=== PATIENT | female | born 1975 ===

== ENCOUNTER 2016-11-16 23:28 | Inpatient (IN) | payer OTHER ==
[~2016-11-16] VITALS: Ht 170.2 cm; Wt 77.5 kg
[2016-11-16 23:35] VITALS: BP 134/84; PULSE 112; RESP 20; TEMP 98.4; O2SAT 98
[2016-11-17] VITALS (8 sets, daily range): BP systolic 98–135; BP diastolic 55–94; PULSE 58–96; RESP 16–20; TEMP 96.4–97.8; O2SAT 94–98
[2016-11-17 00:11] LABS: AUTOMATED NEUTROPHIL # 4.7 TH/MM3 (1.8-7.7); BASOPHIL # 0.1 TH/MM3 (0-0.2); BASOPHIL % 0.7 % (0.0-2.0); EOSINOPHIL # 0.1 TH/MM3 (0-0.4); EOSINOPHIL % 1.6 % (0.0-4.0); HEMATOCRIT 39.4 % (35.0-46.0); HEMO FLAGS DIFF FINAL; LYMPH % 35.5 % (9.0-44.0); LYMPHOCYTE # 2.9 TH/MM3 (1.0-4.8); MEAN CELL VOLUME 89.3 FL (80.0-100.0); MEAN CORPUSCULAR HEMOGLOBIN 30.1 PG (27.0-34.0); MEAN CORPUSCULAR HGB CONC 33.8 % (32.0-36.0); MONO % 5.6 % (0.0-8.0); NEUT % 56.6 % (16.0-70.0); PLATELET COUNT 242 TH/MM3 (150-450); RED BLOOD COUNT 4.41 MIL/MM3 (4.00-5.30); RED CELL DISTRIBUTION WIDTH 13.1 % (11.6-17.2); WHITE BLOOD COUNT 8.3 TH/MM3 (4.0-11.0)
--- NOTE | 2016-11-17 00:21 | RADRPT ---
EXAM DATE/TIME: 11/17/2016 00:11 [facility] COMPARISON: No previous studies available for comparison. INDICATIONS : Weakness and left hand numbness. MEDICAL HISTORY : None. SURGICAL HISTORY : None. ENCOUNTER: Initial ACUITY: 1 day PAIN SCORE: 0/10 LOCATION: Bilateral chest FINDINGS: The lungs are clear without infiltrate, nodule, or mass. There is no appreciable pleural effusion fo r technique. Heart and mediastinum are unremarkable. CONCLUSION: No acute cardiopulmonary disease. Jared Arias MD on November 17, 2016 at 0:19 Board Certified Radiologist. This report was verified electronically.
[2016-11-17 00:26] LABS: APTT (PATIENT) 25.2 SEC (24.3-30.1); INTERNATIONAL NORMALIZED RATIO 0.9 RATIO; PROTHROMBIN TIME - PATIENT 10.2 SEC (9.8-11.6)
[2016-11-17 00:46] LABS: BLOOD, URINE NEG (NEG); COMMENT (UR) CULT NOT INDICATED; CULTURE IF INDICATED CULT NOT INDICATED; GLUCOSE,URINE NEG (NEG); KETONE, URINE NEG (NEG); NITRITE,URINE NEG (NEG); SQUAMOUS EPITHELIAL CELL URINE 2 /hpf (0-5); URINE COLOR COLORLESS (YELLW/STRAW)
[2016-11-17 00:49] LABS: ALT (GPT) 28 U/L (10-53); ANION GAP 7 MEQ/L (5-15); AST (GOT) 23 U/L (15-37); BICARBONATE 27.3 MEQ/L (21.0-32.0); BLOOD UREA NITROGEN 13 MG/DL (7-18); CHLORIDE 105 MEQ/L (98-107); GLOMERULAR FILTRATION RATE 70 ML/MIN (>89); SODIUM (NA) 139 MEQ/L (136-145)
[2016-11-17 00:56] LABS: ALKALINE PHOSPHATASE 52 U/L (45-117); TOTAL BILIRUBIN ADULT 0.4 MG/DL (0.2-1.0)
--- NOTE | 2016-11-17 00:57 | RADRPT ---
EXAM DATE/TIME: 11/17/2016 00:45 [facility] COMPARISON: No previous studies available for comparison. INDICATIONS : Left arm and hand weakness. RADIATION DOSE: 32.93 CTDIvol (mGy) MEDICAL HISTORY : None SURGICAL HISTORY : None. ENCOUNTER: Initial ACUITY: 1 day PAIN SCALE: 0/10 LOCATION: cranial TECHNIQUE: Multiple contiguous axial images were obtained of the head. Using automated exposure control and adj ustment of the mA and/or kV according to patient size, radiation dose was kept as low as reasonably a chievable to obtain optimal diagnostic quality images. FINDINGS: There is no evidence for intracranial hemorrhage, mass effect, mass lesions, edema, or extra-axial fl uid collections. The visualized bony structures appear intact. The ventricles are normal size for t he patient's age. There are no signs of acute infarction for technique. CONCLUSION: Unremarkable study. Jared Arias MD on November 17, 2016 at 0:54 Board Certified Radiologist. This report was verified electronically.
--- NOTE | 2016-11-17 01:00 | RADRPT ---
EXAM DATE/TIME: 11/17/2016 00:45 [facility] COMPARISON: No previous studies available for comparison. INDICATIONS : Left arm and hand numbness. RADIATION DOSE: 16.09 CTDIvol (mGy) MEDICAL HISTORY : None SURGICAL HISTORY : None. ENCOUNTER: Initial ACUITY: 1 day PAIN SCALE: 0/10 LOCATION: neck TECHNIQUE: Volumetric scanning of the cervical spine was performed. Multiplanar reconstructions in the sagittal, coronal and oblique axial planes were performed. Using automated exposure control and adjustment o f the mA and/or kV according to patient size, radiation dose was kept as low as reasonably achievable to obtain optimal diagnostic quality images. FINDINGS: No evidence of subluxation. No definite fracture is seen for technique. C2-C3: There is no evidence for any significant compromise to the thecal sac, or the exiting nerve roots. N o appreciable thecal sac stenosis is seen. The neural foramina and lateral recess appear patent bila terally. C3-C4: There is no evidence for any significant compromise to the thecal sac, or the exiting nerve roots. N o appreciable thecal sac stenosis is seen. The neural foramina and lateral recess appear patent bila terally. C4-C5: Significant degenerative changes are seen within the disc space and facets. Moderate bilateral latera l recess compromise is seen due to hypertrophic changes and bulging disc. Slight bulging disc and hyp ertrophic changes are seen with indentation on the thecal sac and no significant compromise to the th ecal sac. C5-C6: Significant degenerative changes are seen within the disc space and facets. There is bulging disc and hypertrophic change protruding into bilateral lateral recess without any significant compromise to t he exiting nerve roots. Slight bulging disc and hypertrophic changes are seen with indentation on the thecal sac and no significant compromise to the thecal sac or the exiting nerve roots. C6-C7: Significant degenerative changes are seen within the disc space and facets. Slight bulging disc and h ypertrophic changes are seen with indentation on the thecal sac and no significant compromise to the thecal sac or the exiting nerve roots. C7-T1: There is no evidence for any significant compromise to the thecal sac, or the exiting nerve roots. N o appreciable thecal sac stenosis is seen. The neural foramina and lateral recess appear patent bila terally. CONCLUSION: Moderate bilateral lateral recess compromise C4-C5 without any significant thecal sac stenosis. Jared Arias MD on November 17, 2016 at 0:56 Board Certified Radiologist. This report was verified electronically.
--- NOTE | 2016-11-17 01:22 | PD ---
HPI Chief Complaint: Numbness/Tingling Time Seen by Provider: 23:50 Travel History International Travel<30 days: No Contact w/Intl Traveler<30days: No Traveled to known affect area: No History of Present Illness HPI 41-year-old female complains of numbness tingling sensation and weakness left forearm. Patient started having numbness tingling sensation of the left forearm around 8:15 this evening. Patient states that she started having some weakness and left forearm subsequently. Patient denies any weakness or numbness on the left upper arm. Patient denies any headache. Patient denies any visual change. Patient denies any facial weakness and numbness. Patient denies any neck pain. Patient denies any chest pain or shortness of breath. Patient denies abdominal pain. Patient denies any other weakness or numbness of extremity. Patient denies any history of TIA or CVA. Patient denies any history of neck injury or left arm injury recently. PFSH Past Medical History Tetanus Vaccination: < 5 Years ?: Not LMP: 5-17-17 : 2 Para: 1 Miscarriage: 1 Past Surgical History Surgical History: No Previous Surgery Section: Yes Tonsillectomy: Yes (t&a) Social History Alcohol Use: Yes (bi-weekly) Tobacco Use: Yes (1ppd) Substance Use: No Allergies-Medications (Allergen,Severity, Reaction): Coded Allergies: Aspirin (Verified Adverse Reaction, Severe, Bleeding, 11/16/16) Reported Meds & Prescriptions Reported Meds & Active Scripts Active No Active Prescriptions or Reported Medications Review of Systems General / Constitutional: No: Fever Eyes: No: Visual changes HENT: No: Headaches Cardiovascular: No: Chest Pain or Discomfort Respiratory: No: Shortness of Breath Gastrointestinal: No: Abdominal Pain Genitourinary: No: Dysuria Musculoskeletal: No: Pain Skin: No Rash Neurologic: Positive: Weakness, Paresthesia Psychiatric: No: Depression Endocrine: No: Polydipsia Hematologic/Lymphatic: No: Easy Bruising Physical Exam Narrative GENERAL: Well-nourished, well-developed patient. SKIN: Focused skin assessment warm/dry. HEAD: Normocephalic. EYES: No scleral icterus. No injection or drainage. NECK: Supple, trachea midline. No JVD or lymphadenopathy. CARDIOVASCULAR: Regular rate and rhythm without murmurs, gallops, or rubs. RESPIRATORY: Breath sounds equal bilaterally. No accessory muscle use. GASTROINTESTINAL: Abdomen soft, non-tender, nondistended. MUSCULOSKELETAL: No cyanosis, or edema. BACK: Nontender without obvious deformity. No CVA tenderness. Neurologic exam: Patient is awake and alert oriented 3. Patient had decrease in light touch sensation and weakness the left forearm and left hand. Left upper extremity muscular function and motor function and sensory function intact. Data Data Last Documented VS Vital Signs Date Time Temp Pulse Resp B/P Pulse Ox O2 Delivery O2 Flow Rate FiO2 11/17/16 01:30 96 20 98/55 98 11/16/16 23:35 98.4 Orders Electrocardiogram (11/16/16 23:56) Complete Blood Count With Diff (11/16/16 23:56) Comprehensive Metabolic Panel (11/16/16 23:56) Prothrombin Time / Inr (Pt) (11/16/16 23:56) Act Partial Throm Time (Ptt) (11/16/16 23:56) Urinalysis - C+S If Indicated (11/16/16 23:56) Thyroid Stimulating Hormone (11/16/16 23:56) Chest, Single Ap (11/16/16 23:56) Ct Brain W/O Iv Contrast(Rout) (11/16/16 23:56) Iv Access Insert/Monitor (11/16/16 23:56) Ecg Monitoring (11/16/16 23:56) Oximetry (11/16/16 23:56) Ed Urine Pregnancytest Poc (11/16/16 23:56) Ct Cerv Spine W/O Contrast (11/16/16 23:56) Sodium Chlor 0.9% 1000 Ml Inj (Ns 1000 M (11/17/16 01:30) Methylprednisolone So Succ Inj (Solumedr (11/17/16 01:30) Mri Brain W/O Contrast (11/17/16 01:23) Mra Brain W/O Contrast (Cow) (11/17/16 01:27) Mra Carotids W Contrast (11/17/16 01:27) Admit Order (Ed Use Only) (11/17/16 01:33) Mri C Spine W/O Contrast (11/17/16 ) Mri Brachial Plexus W/O Cont (11/17/16 ) Labs Laboratory Tests Test 11/16/16 11/17/16 23:30 00:10 White Blood Count 8.3 TH/MM3 Red Blood Count 4.41 MIL/MM3 Hemoglobin 13.3 GM/DL Hematocrit 39.4 % Mean Corpuscular Volume 89.3 FL Mean Corpuscular Hemoglobin 30.1 PG Mean Corpuscular Hemoglobin 33.8 % Concent Red Cell Distribution Width 13.1 % Platelet Count 242 TH/MM3 Mean Platelet Volume 7.6 FL Neutrophils (%) (Auto) 56.6 % Lymphocytes (%) (Auto) 35.5 % Monocytes (%) (Auto) 5.6 % Eosinophils (%) (Auto) 1.6 % Basophils (%) (Auto) 0.7 % Neutrophils # (Auto) 4.7 TH/MM3 Lymphocytes # (Auto) 2.9 TH/MM3 Monocytes # (Auto) 0.5 TH/MM3 Eosinophils # (Auto) 0.1 TH/MM3 Basophils # (Auto) 0.1 TH/MM3 CBC Comment DIFF FINAL Differential Comment Prothrombin Time 10.2 SEC Prothromb Time International 0.9 RATIO Ratio Activated Partial 25.2 SEC Thromboplast Time Sodium Level 139 MEQ/L Potassium Level 4.0 MEQ/L Chloride Level 105 MEQ/L Carbon Dioxide Level 27.3 MEQ/L Anion Gap 7 MEQ/L Blood Urea Nitrogen 13 MG/DL Creatinine 0.89 MG/DL Estimat Glomerular Filtration 70 ML/MIN Rate Random Glucose 96 MG/DL Calcium Level 8.4 MG/DL Total Bilirubin 0.4 MG/DL Aspartate Amino Transf 23 U/L (AST/SGOT) Alanine Aminotransferase 28 U/L (ALT/SGPT) Alkaline Phosphatase 52 U/L Total Protein 7.4 GM/DL Albumin 3.7 GM/DL Thyroid Stimulating Hormone 1.840 uIU/ML 3rd Gen Urine Color COLORLESS Urine Turbidity CLEAR Urine pH 6.0 Urine Specific [place] 1.002 Urine Protein NEG mg/dL Urine Glucose (UA) NEG mg/dL Urine Ketones NEG mg/dL Urine Occult Blood NEG Urine Nitrite NEG Urine Bilirubin NEG Urine Urobilinogen LESS THAN 2.0 MG/DL Urine Leukocyte Esterase NEG Urine RBC 1 /hpf Urine WBC 1 /hpf Urine Squamous Epithelial 2 /hpf Cells Microscopic Urinalysis Comment CULT NOT INDICATED MDM Medical Decision Making Medical Screen Exam Complete: Yes Emergency Medical Condition: Yes Interpretation(s) Last Impressions Head CT 11/16/16 [id number] Signed Impressions: Service Date/Time: SaturNovember 17, 2016 00:45 - CONCLUSION: Unremarkable study. Jared Arias MD Chest X-Ray 11/16/[id number] Signed Impressions: Service Date/Time: Thursday, November 17, 2016 00:11 - CONCLUSION: No acute cardiopulmonary disease. Jared Arias MD Cervical Spine CT 11/16/162355 Signed Impressions: Service Date/Time: Thursday, November 17, 2016 00:45 - CONCLUSION: Moderate bilateral lateral recess compromise C4-C5 without any significant thecal sac stenosis. Jared Arias MD 1:21 AM. CBC within normal limit. CMP within normal limit. UA is negative. EKG shows sinus rhythm nonspecific ST-T wave change. Differential Diagnosis Differential diagnosis including neuritis, neuropathy, TIA, CVA, Narrative Course 41-year-old female with weakness and numbness to left forearm and left hand. I spoke with neurologist, Dr. Sylvester, cotton classer aide. stroke alert was not indicated. TPA is not indicated. Solu-Medrol 125 mg IV given. The differential diagnosis including neuropathy, neuritis, focal TIA, CVA. TIA and CVA was seen to be unlikely considering the deficit localized to distal to the left elbow. MRI of the brain was ordered. MRA of carotid and brain and [place] was ordered. I contacted Dr. Sylvester, neurologist during the night about the results of MRI of the brain. Patient has a small acute infarct on the right parietal region. Plavix was ordered. Patient has history of allergic to aspirin which causes her to bleed in the past. Diagnosis Primary Impression: Neuropathy Additional Impressions: Neuritis Focal neurological deficit Admitting Information Admitting Physician Requests: Observation Scripts No Active Prescriptions or Reported Meds Suman Kuhn MD Nov 17, 2016 01:22
[2016-11-17] MEDS ORDERED: methylPREDNISolone SOD SUCC 125 MG/2 ML VIAL IV PUSH ONE (01:30)
[2016-11-17] MEDS: SODIUM CHLOR 0.9% 1000 ML INJ 1,000 ML IV SCH ×3 (01:32→21:30)
[2016-11-17] MEDS ORDERED: ACETAMINOPHEN 325 MG TAB PO PRN (01:45)
[2016-11-17] MEDS ORDERED: SODIUM CHLORIDE 0.9% FLUSH 10 ML FLUSH IVF PRN (01:45)
[2016-11-17] MEDS ORDERED: ONDANSETRON HCL 4 MG/2 ML VIAL IV PRN (01:45)
--- NOTE | 2016-11-17 03:39 | RADRPT ---
EXAM DATE/TIME: 11/17/2016 02:44 [facility] COMPARISON: CT BRAIN W/O CONTRAST, November 17, 2016, 0:45. INDICATIONS : CVA. MEDICAL HISTORY : None. SURGICAL HISTORY : Tonsillectomy. section. ENCOUNTER: Initial ACUITY: 1 day PAIN SCORE: 4/10 LOCATION: Left handweakness. TECHNIQUE: Multiplanar, multisequence MRI of the brain was performed without contrast. FINDINGS: There is a small area of abnormal diffusion capacity involving the right parietal lobe in the re gion of the postcentral gyrus with partial extension into the adjacent white matter tracts characteri stic of acute infarction without hemorrhage or mass effect. CONCLUSION: Small area of acute infarction in the right parietal lobe. Jared Arias MD on November 17, 2016 at 3:36 Board Certified Radiologist. This report was verified electronically.
--- NOTE | 2016-11-17 03:43 | RADRPT ---
EXAM DATE/TIME: 11/17/2016 02:44 [facility] COMPARISON: No previous studies available for comparison. INDICATIONS : Myelopathy. MEDICAL HISTORY : None. SURGICAL HISTORY : Tonsillectomy. section. ENCOUNTER: Initial ACUITY: 1 day PAIN SCORE: 3/10 LOCATION: Left hand weakness. TECHNIQUE: Multiplanar, multisequence MRI examination of the cervical spine was performed. FINDINGS: The cerebellar tonsils are normal in position. The spinal cord appears intact. C2-C3: There is no evidence for any significant compromise to the thecal sac, or the exiting nerve roots. N o appreciable thecal sac stenosis is seen. The neural foramina and lateral recess appear patent bila terally. C3-C4: There is no evidence for any significant compromise to the thecal sac, or the exiting nerve roots. N o appreciable thecal sac stenosis is seen. The neural foramina and lateral recess appear patent bila terally. C4-C5: Slight degenerative changes are seen within the disc space and facets. Slight lateral recess compromi se is seen on the left due to hypertrophic changes and bulging disc. There is moderate neural foramin a compromise on the left due to asymmetrical bulging disc and hypertrophic changes. There is slight n eural foramina compromise on the right due to asymmetrical bulging disc and hypertrophic changes. The re is effacement of the anterior CSF space due to chronic hypertrophic changes, some degree of bulgin g disc with compromise to the anterior CSF space, however overall no significant thecal sac stenosis is seen. C5-C6: Slight degenerative changes are seen within the disc space and facets. There is slight neural foramin a compromise bilaterally due to bulging disc and hypertrophic changes. Slight bulging disc and hypert rophic changes are seen with indentation on the thecal sac and no significant compromise to the theca l sac. C6-C7: Slight degenerative changes are seen within the disc space and facets. Slight bulging disc and hypert rophic changes are seen with indentation on the thecal sac and no significant compromise to the theca l sac or the exiting nerve roots. C7-T1: There is no evidence for any significant compromise to the thecal sac, or the exiting nerve roots. N o appreciable thecal sac stenosis is seen. The neural foramina and lateral recess appear patent bila terally. CONCLUSION: Neural foramina compromise bilateral C4-C5 bilateral C5-6 and lateral recess compromise left C4-5 wit h effacement of the anterior CSF space C4-C5. Jared Arias MD on November 17, 2016 at 3:38 Board Certified Radiologist. This report was verified electronically.
--- NOTE | 2016-11-17 03:44 | RADRPT ---
EXAM DATE/TIME: 11/17/2016 02:44 [facility] COMPARISON: MRI CERVICAL SPINE W/O CONTRAST, November 17, 2016, 2:44. MRI BRAIN W/O CONTRAST, November 17, 2016, 2:44. INDICATIONS : CVA. MEDICAL HISTORY : None. SURGICAL HISTORY : Tonsillectomy. section. ENCOUNTER: Initial ACUITY: 1 day PAIN SCORE: 3/10 LOCATION: Left hand weakness. Please note a normal MRA of the brain does not entirely exclude the possibility of a small aneurysm, nor the possibility of distal intracranial vessel disease. TECHNIQUE: 3D time of flight MRA was performed. Source images, multiplanar STS MIP, and 3D volume MIP reconstru ctions were reviewed. FINDINGS: There is excellent visualization of the major intracranial arteries out to the second-order branch ve ssels. There is no evidence for aneurysm, vessel truncation or stenosis, and no evidence for vascula r malformation. CONCLUSION: Normal examination. Jared Arias MD on November 17, 2016 at 3:41 Board Certified Radiologist. This report was verified electronically.
--- NOTE | 2016-11-17 04:12 | RADRPT ---
EXAM DATE/TIME: 11/17/2016 02:44 [facility] COMPARISON: No previous studies available for comparison. INDICATIONS : Weakness. MEDICAL HISTORY : None. SURGICAL HISTORY : Tonsillectomy. section. ENCOUNTER: Initial ACUITY: 1 day PAIN SCORE: 3/10 LOCATION: Left hand weakness. TECHNIQUE: Multiplanar, multisequence MRI examination of the brachial plexus was performed without contrast. FINDINGS: There are small lymph nodes in the patient's lower neck bilaterally and axilla. There is no evid ence for mass or fluid collections along the course of the brachial plexus. CONCLUSION: Unremarkable study. Jared Arias MD on November 17, 2016 at 4:08 Board Certified Radiologist. This report was verified electronically.
--- NOTE | 2016-11-17 04:40 | RADRPT ---
EXAM DATE/TIME: 11/17/2016 02:44 [facility] COMPARISON: MRI CERVICAL SPINE W/O CONTRAST, November 17, 2016, 2:44. MRI BRAIN W/O CONTRAST, November 17, 2016, 2:44. MRA BRAIN W/O CONTRAST, November 17, 2016, 2:44. MRI BRACHIAL PLEXUS LEFT W/O CONTRAST, November 17, 2016, 2 :44. INDICATIONS : CVA CONTRAST: 20 cc Omniscan (gadodiamide) IV MEDICAL HISTORY : None. SURGICAL HISTORY : Tonsillectomy. section. ENCOUNTER: Initial ACUITY: 1 day PAIN SCORE: 3/10 LOCATION: Left hand weakness. Percent stenosis is calculated using the diameter of the stenotic region over the diameter of the nor mal distal internal carotid artery. TECHNIQUE: Bolus infused MRA of the extracranial circulation was performed using a neurovascular coil. Post pro cessing was performed including rotating subvolume maximum intensity projections of each carotid colten ry, rotating full volume maximum intensity projections of both carotid arteries, sagittal and coronal sliding thin slab reformations of each carotid artery, and left oblique sliding thin slab reformatio n through the aortic arch to include the origin of the arch branch vessels.FINDINGS: AORTIC ARCH: There is a three vessel origin of the great vessels from the aorta. No evidence of ostial narrowing. RIGHT CAROTID: The common carotid artery is intact. The carotid bulb has a normal configuration without ulceration or narrowing. The internal carotid artery lumen is smooth without stenosis. The external carotid ar alyssia is intact. LEFT CAROTID: The common carotid artery is intact. The carotid bulb has a normal configuration without ulceration or narrowing. The internal carotid artery lumen is smooth without stenosis. The external carotid ar alyssia is intact. VERTEBRALS: The vertebral arteries have a symmetric diameter. No stenotic lesions are seen. CONCLUSION: Normal examination. Jared Arias MD on November 17, 2016 at 4:38 Board Certified Radiologist. This report was verified electronically.
[2016-11-17] MEDS ORDERED: CLOPIDOGREL 75 MG TAB PO ONE (05:30)
[2016-11-17] MEDS: SODIUM CHLORIDE 0.9% FLUSH 10 ML FLUSH IV FLUSH SCH ×2 (09:00→21:00)
--- NOTE | 2016-11-17 10:58 | HHI.HP ---
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 She placed her purse onto the left shoulder and it fell off. Her grasp has been very weak in left hand and experiencing some spasm/contraction of hand spontaneously. These sx's are mostly in 3rd/4rth/5th fingers and hand..and parasthesia mostly in forearm. No trauma to the arm and no cervical pain or injury. No headache prior to onset of sx's and no n/v or vision change. IV solumedrol helped a little in ED but then it became worse again. No hx hypercoagulable d/o, no fh thrombosis, no estrogen products, no afib/flutter. 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 of forearm Past Family Social History Past Medical History c section tonsils/adenoids Reported Medications Reported Meds & Active Scripts Active No Active Prescriptions or Reported Medications Allergies: Coded Allergies: Aspirin (Verified Adverse Reaction, Severe, Bleeding, 11/16/16) Family History nc Social History social etoh 1ppd tob Physical Exam Vital Signs nad heart reg lung cta abd s/nt ext no edema no carotid bruit left hand envelope sealer weaker than right Vital Signs Date Time Temp Pulse Resp B/P Pulse Ox O2 Delivery O2 Flow Rate FiO2 11/17/16 09:22 98 21 11/17/16 02:38 96.4 81 16 128/59 95 11/17/16 01:46 98 11/17/16 01:30 96 20 98/55 98 11/16/16 23:35 98.4 112 20 134/84 98 Laboratory Laboratory Tests Test 11/16/16 11/17/16 23:30 00:10 White Blood Count 8.3 Red Blood Count 4.41 Hemoglobin 13.3 Hematocrit 39.4 Mean Corpuscular Volume 89.3 Mean Corpuscular Hemoglobin 30.1 Mean Corpuscular Hemoglobin 33.8 Concent Red Cell Distribution Width 13.1 Platelet Count 242 Mean Platelet Volume 7.6 Neutrophils (%) (Auto) 56.6 Lymphocytes (%) (Auto) 35.5 Monocytes (%) (Auto) 5.6 Eosinophils (%) (Auto) 1.6 Basophils (%) (Auto) 0.7 Neutrophils # (Auto) 4.7 Lymphocytes # (Auto) 2.9 Monocytes # (Auto) 0.5 Eosinophils # (Auto) 0.1 Basophils # (Auto) 0.1 CBC Comment DIFF FINAL Differential Comment Prothrombin Time 10.2 Prothromb Time International 0.9 Ratio Activated Partial 25.2 Thromboplast Time Sodium Level 139 Potassium Level 4.0 Chloride Level 105 Carbon Dioxide Level 27.3 Anion Gap 7 Blood Urea Nitrogen 13 Creatinine 0.89 Estimat Glomerular Filtration 70 Rate Random Glucose 96 Calcium Level 8.4 Total Bilirubin 0.4 Aspartate Amino Transf 23 (AST/SGOT) Alanine Aminotransferase 28 (ALT/SGPT) Alkaline Phosphatase 52 Total Protein 7.4 Albumin 3.7 Thyroid Stimulating Hormone 1.840 3rd Gen Urine Color COLORLESS Urine Turbidity CLEAR Urine pH 6.0 Urine Specific [place] 1.002 Urine Protein NEG Urine Glucose (UA) NEG Urine Ketones NEG Urine Occult Blood NEG Urine Nitrite NEG Urine Bilirubin NEG Urine Urobilinogen LESS THAN 2.0 Urine Leukocyte Esterase NEG Urine RBC 1 Urine WBC 1 Urine Squamous Epithelial 2 Cells Microscopic Urinalysis Comment CULT NOT INDICATED Result Diagram: 11/16/16232911/16/162329 Assessment and Plan Problem List: (1) CVA (cerebral vascular accident) Status: Acute Plan: Pt is 41 yo presenting with sudden onset of left hand/envelope sealer weakness and parasthesia primarily affecting fingers 3-5 and forearm. MRI shows concern for acute ischemic infarct in right parietal region. MRI c spine showed some c4-5-6 neuroforaminal dz but nothing that seems to be in the distribution of her symptoms. tele/holter to eval for afib/flutter 2 d Echo..She may need cardiology eval and ROBERTO Saturday if felt necessary by neurology. cont plavix for now. check flp check hypercoagulable panel tobacco cessation ivf neurology consulted. dvt prophylaxis. (2) Tobacco use Status: Chronic Plan: see above Albert Tate MD Nov 17, 2016 10:58
--- NOTE | 2016-11-17 13:53 | EKG ---
Date Performed: 11/16/2016 Time Performed: 23:51:28 PTAGE: 41 years EKG: Sinus rhythm NORMAL ECG NO PREVIOUS TRACING DOCTOR: Albert Kan Interpretating Date/Time 11/17/2016 13:52:29
[2016-11-17] MEDS ORDERED: GADODIAMIDE PF 287 MG/ML 20 ML VIAL (for RAD MRI) IV ONE (15:40)
[2016-11-18] VITALS (8 sets, daily range): BP systolic 103–127; BP diastolic 64–74; PULSE 68–82; RESP 18–20; TEMP 96–97.5; O2SAT 94–98
--- NOTE | 2016-11-18 05:53 | MB ---
cc: CHANDLER TERRAZAS MD DATE OF CONSULTATION: 11/17/2016 REASON FOR CONSULTATION: Stroke. HISTORY OF PRESENT ILLNESS Ms. 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 She states that she placed her purse onto her left shoulder and it fell off, and she felt that the grasp of her hand was weak, especially the pinky and ring finger on the left hand, and she is a left-handed person. She denies headache, double vision, blurred vision, slurred speech, facial numbness, or leg numbness. She denies similar episode in the past. She denies any trauma to the neck, arm or cervical spine injury. She received IV Solu-Medrol in the emergency room initially which made her feel better and then became worse again. The patient denies any family history of stroke, hypercoagulable state or blood disorder. Also denies any change in lifestyle habits or being on hormone therapy or drug controlled therapy. No cardiac history. REVIEW OF SYSTEMS 12-point review of systems is negative except for what is in the HPI. PAST MEDICAL HISTORY Noncontributory. PAST SURGICAL HISTORY , T&A. MEDICATIONS No medications, just multivitamins. ALLERGIES: ASPIRIN. FAMILY HISTORY: Noncontributory. SOCIAL HISTORY: One pack a day of tobacco and social ethanol drinker. Denies illicit drug abuse. PHYSICAL EXAMINATION: General: Awake, alert, pleasant, good historian, anxious. HEENT: Atraumatic, normocephalic. Neck: Supple with no carotid bruit. Respiratory: Clear to auscultation. No wheezes. Cardiovascular: Regular rate and rhythm. No murmurs. Abdomen: Soft, nontender. Extremities: No leg edema. No swelling. No clubbing. Neurologic: Awake, alert and oriented to time, person and place. No dysphagia. No dysarthria. Cranial nerves II-XII are grossly intact. Intact memory. Motor system examination, 5/5 bilateral symmetrical except for the middle ring and little finger on the left upper extremity with 5-/5 finger flexion and abduction, otherwise 5/5 bilateral and symmetrical, normal reflexes 2+ bilateral and symmetrical. Plantars are bilaterally downgoing. No abnormal movement. Uupxpo-ho-hzzx, euhf-og-swrm intact. Intact stance, no ataxia, Romberg sign negative. Normal tandem gait. Psychological: Normal mood and behavior. LABORATORY DATA White blood cells 8.3, hemoglobin 13.3, MCV 89.3, platelet count 212, INR 0.9, sodium 139, potassium 4, chloride 105, anion gap 70, BUN 13, creatinine 0.89. Normal liver function tests. TSH 1.84. Urinalysis negative. IMAGING STUDIES - Head CT scan without contrast: Unremarkable. - Cervical spine CT: Revealed moderate bilateral lateral recess compromise C4-5 without any significant thecal sac stenosis. - Cervical spine MRI: Neuroforaminal compromise bilateral C4-C5, bilateral C5-C6 and lateral recess compromise. Left C4-C5 with effacement of anterior CSF space C4-C5. - Brachial plexus MRI: Unremarkable study. - Brain MRI: Revealed small area of acute infarction of the right parietal lobe. - Neck MRA: Normal. - Head MRA: Normal examination. DIAGNOSTIC IMPRESSION Acute ischemic stroke, right parietal region. PLAN 1. Neuro checks q. 4 hourly. 2. Plavix 75 milligrams. 3. Cardiac echo. 4. Telemetry. 5. Holter monitoring. 6. Obtain hypercoagulable panel. 7. Tobacco cessation. 8. DVT prophylaxis. 9. GI prophylaxis. 10. MRV. 11. MRI with and without contrast. Thank you for the opportunity to participate in the care of your patient. MD MIRELA Pearce/SHARA /11:37 PM /5:19 AM JOSH
[2016-11-18] MEDS: SODIUM CHLOR 0.9% 1000 ML INJ 1,000 ML IV SCH (07:30)
[2016-11-18 07:47] LABS: HDL CHOLESTEROL 68.5 MG/DL (40.0-60.0)
[2016-11-18] MEDS: SODIUM CHLORIDE 0.9% FLUSH 10 ML FLUSH IV FLUSH SCH ×2 (09:00→21:00)
[2016-11-18] MEDS: CLOPIDOGREL 75 MG TAB PO SCH (09:06)
--- NOTE | 2016-11-18 11:34 | HHI.PR ---
Subjective Remarks left hand strength/parasthesia better. 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 Vital Signs Date Time Temp Pulse Resp B/P Pulse Ox O2 Delivery O2 Flow Rate FiO2 11/18/16 09:26 95 21 11/18/16 08:00 96.8 71 19 118/73 97 11/18/16 04:00 96.7 82 18 113/69 97 11/18/16 00:00 97.5 68 20 110/66 98 11/17/16 20:00 97.8 72 20 103/65 98 11/17/16 17:17 66 11/17/16 16:00 96.5 72 19 126/73 96 11/17/16 12:00 97.1 58 19 105/67 94 11/17/16 11/17/16 11/18/16 15:00 23:00 07:00 Intake Total 1500 ml 480 ml Balance 1500 ml 480 ml Intake Oral 1500 ml 480 ml # Voids 9 3 # Bowel Movements 1 1 Result Diagram: 11/16/16 2330 11/16/16 2330 A/P Problem List: (1) CVA (cerebral vascular accident) Status: Acute Plan: Pt is 41 yo presenting with sudden onset of left hand/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 MRI shows concern for acute ischemic infarct in right parietal region. MRI c spine showed some c4-5-6 neuroforaminal dz but nothing that seems to be in the distribution of her symptoms. tele/holter to eval for afib/flutter 2 d Echo..I would ask for cardiology eval and ? ROBERTO Saturday if felt necessary by neurology. cont plavix for now. check flp check hypercoagulable panel..pending tobacco cessation stop ivf neurology consulted and reccs noted. dvt prophylaxis. (2) Tobacco use Status: Chronic Plan: see above Albert Tate MD Nov 18, 2016 11:34
[2016-11-18] MEDS ORDERED: GADODIAMIDE PF 287 MG/ML 20 ML VIAL (for RAD MRI) IV ONE (15:12)
--- NOTE | 2016-11-18 15:16 | RADRPT ---
EXAM DATE/TIME: 11/18/2016 14:23 [facility] COMPARISON: No previous studies available for comparison. INDICATIONS : Left upper extremity weakness. CONTRAST: 20 cc Omniscan (gadodiamide) IV MEDICAL HISTORY : None. SURGICAL HISTORY : Tonsillectomy. ENCOUNTER: Initial ACUITY: 1 day PAIN SCORE: 0/10 LOCATION: cranial TECHNIQUE: Multiplanar, multisequence MRI of the brain was performed both prior to and following the administrat ion of paramagnetic contrast. FINDINGS: CEREBRUM: Few small T2 bright foci in the right parietal lobe. The ventricles are normal for age. No evidence of midline shift, mass lesion, hemorrhage or acute infarction. No extraaxial fluid collections are s een. The pituitary gland and suprasellar cistern are normal in configuration. WHITE MATTER: No significant signal abnormalities are seen in the white matter. POSTERIOR FOSSA: The cerebellum and brainstem are intact. The 4th ventricle is midline. The cerebellopontine angle is unremarkable. The cerebellar tonsils are normal in position. DIFFUSION IMAGING: There is focal areas of restricted diffusion in the right parietal lobe consistent with acute infarct ions. EXTRACRANIAL: The visualized portions of the orbits and paranasal sinuses are unremarkable. POST-CONTRAST: No abnormal areas of parenchymal or dural enhancement. No evidence of blood-brain barrier breakdown. CONCLUSION: 1. 2 small acute infarctions in the high right parietal lobe. Rosales Henao MD on November 18, 2016 at 15:12 Board Certified Radiologist. This report was verified electronically.
--- NOTE | 2016-11-18 16:06 | EC ---
Study Study Date:11/18/2016 STUDY CONCLUSIONS SUMMARY - Left ventricle: The cavity size was normal. Wall thickness was normal. Systolic function was normal. The estimated ejection fraction was in the range of 60% to 65%. Wall motion was normal; there were no regional wall motion abnormalities. - Pulmonary arteries: PA peak pressure: 42mm Hg (S). If LV function is below 40, please consider prescribing an ACEI or ARB or document rationale for non-use. PROCEDURE DATA STUDY STATUS: Elective. Procedure: Transthoracic echocardiography. Image quality was good. Scanning was performed from the parasternal, apical, and subcostal acoustic windows. Study completion: The patient tolerated the procedure well. Transthoracic echocardiography. M-mode, complete 2D, complete spectral Doppler, and color Doppler. Patient status: Inpatient. CARDIAC ANATOMY LEFT VENTRICLE: The cavity size was normal. Wall thickness was normal. Systolic function was normal. The estimated ejection fraction was in the range of 60% to 65%. Wall motion was normal; there were no regional wall motion abnormalities. AORTIC VALVE: Trileaflet; normal thickness leaflets. Doppler: Transvalvular velocity was within the normal range. There was no stenosis. No regurgitation. AORTA: Aortic root: The aortic root was normal in size. MITRAL VALVE: Structurally normal valve. Doppler: Transvalvular velocity was within the normal range. There was no evidence for stenosis. Trace regurgitation. LEFT ATRIUM: The atrium was normal in size. RIGHT VENTRICLE: The cavity size was normal. Wall thickness was normal. PULMONIC VALVE: Doppler: Transvalvular velocity was within the normal range. There was no evidence for stenosis. No regurgitation. TRICUSPID VALVE: Structurally normal valve. Doppler: Transvalvular velocity was within the normal range. Trace regurgitation. PULMONARY ARTERY: The main pulmonary artery was normal-sized. Systolic pressure was within the normal range. RIGHT ATRIUM: The atrium was normal in size. PERICARDIUM: There was no pericardial effusion. SYSTEMIC VEINS: Inferior vena cava: The vessel was normal in size. BASIC MEASUREMENTS ADULT NORMAL Left ventricle LV internal dimension, ED, chordal level, 48.3 mm 43-52 PLAX LV internal dimension, ES, chordal level, 34.4 mm 23-38 PLAX Fractional shortening, chordal level, PLAX *29 % >29 LV posterior wall thickness, ED 7.04 mm IVS/LVPW ratio, ED 1.28 <1.3 Ventricular septum Septal thickness, ED 9.01 mm Aortic valve Leaflet separation 18 mm 15-26 Right ventricle RV internal dimension, ED, PLAX 29 mm 19-38 BASIC MEASUREMENTS ADULT NORMAL Aortic valve Leaflet separation 18 mm 15-26 Aorta Root diameter, ED 26 mm 20-37 Left atrium Anterior-posterior dimension, ES 28 mm 19-40 LA/aortic root ratio 1.08 DOPPLER MEASUREMENTS ADULT NORMAL Main pulmonary artery Pressure, S *42 mm Hg =30 Mitral valve Peak E-wave velocity 70.1 cm/s Peak A-wave velocity 46.9 cm/s Peak E/A ratio 1.5 Tricuspid valve Regurgitant peak velocity 285 cm/s Peak RV-RA gradient, S 32 mm Hg Maximal regurgitant velocity 285 cm/s Systemic veins Estimated CVP 10 mm Hg Right ventricle RV pressure, S *42 mm Hg <30 LEGEND: Mean values are shown as u=mean value. Asterisk (*) lund values outside specified normal range. Prepared and signed by Gentry Goyal [id number]
--- NOTE | 2016-11-18 16:33 | RADRPT ---
EXAM DATE/TIME: 11/18/2016 14:23 [facility] COMPARISON: No previous studies available for comparison. INDICATIONS : Left upper extremity weakness. CONTRAST: 20 cc Omniscan (gadodiamide) IV MEDICAL HISTORY : None. SURGICAL HISTORY : Tonsillectomy. ENCOUNTER: Initial ACUITY: 1 day PAIN SCORE: 0/10 LOCATION: cranial Please note a normal MRA of the brain does not entirely exclude the possibility of a small aneurysm, nor the possibility of distal intracranial vessel disease. TECHNIQUE: MR venography of the brain was performed with multiplanar and 3D reconstructions. FINDINGS: Venous sinuses are patent. No thrombus in the superior sagittal, inferior sagittal straight or sigmoi d sinus. Internal jugular veins are patent. CONCLUSION: No venous thrombosis. Rosales Henao MD on November 18, 2016 at 16:31 Board Certified Radiologist. This report was verified electronically.
--- NOTE | 2016-11-18 16:47 | HHI.PR ---
Review/Management Diagnosis Acute ischemic stroke, right parietal region. hyperlipidemia Plan - Neuro checks q. 4 hourly. - Plavix 75 milligrams, allergy to ASA. - Holter monitoring. - pending results of hypercoagulable panel. - Tobacco cessation. - DVT prophylaxis. - GI prophylaxis. -May consider transesophageal echocardiogram Diagnosis/Plan: Subjective Subjective Comments No new complaints Improved left hand movements A follow up MRI brain w/o & w contrast revealed two small infarcts on the high parietal cortex pending results of hypercoagulable workup Cardiac echo was unremarkable with EF 60-60% elevated HDL and triglycerides MRV of the brain was unremarkable Active Medications Current Medications Medications (Trade) Dose Ordered Sig/Rea Route Start Time Stop Time Status Last Admin (Zofran Inj) 4 mg Q6H PRN IV 11/17/16 01:45 (Tylenol) 650 mg Q4H PRN PO 11/17/16 01:45 (NS Flush) 2 ml BID IV FLUSH 11/17/16 09:00 11/18/16 09:00 (NS Flush) 2 ml UNSCH PRN IVF 11/17/16 01:45 (Plavix) 75 mg DAILY PO 11/18/16 09:00 11/18/16 09:06 Allergies Allergies Coded Allergies Aspirin (Verified Adverse Reaction, Severe, Bleeding, 11/16/16) Exam I&O / VS 11/17/16 11/17/16 11/18/16 15:00 23:00 07:00 Intake Total 1500 ml 480 ml Balance 1500 ml 480 ml Intake Oral 1500 ml 480 ml # Voids 9 3 # Bowel Movements 1 1 Vital Signs Date Time Temp Pulse Resp B/P Pulse Ox O2 Delivery O2 Flow Rate FiO2 11/18/16 16:00 96.0 69 19 127/64 97 11/18/16 12:00 96.6 71 19 103/74 94 11/18/16 09:26 95 21 11/18/16 08:00 96.8 71 19 118/73 97 11/18/16 04:00 96.7 82 18 113/69 97 11/18/16 00:00 97.5 68 20 110/66 98 11/17/16 20:00 97.8 72 20 103/65 98 11/17/16 17:17 66 Exam Comments General: Awake, alert, pleasant, good historian, anxious. HEENT: Atraumatic, normocephalic. Neck: Supple with no carotid bruit. Respiratory: Clear to auscultation. No wheezes. Cardiovascular: Regular rate and rhythm. No murmurs. Abdomen: Soft, nontender. Extremities: No leg edema. No swelling. No clubbing. Neurologic: Awake, alert and oriented to time, person and place. No dysphagia. No dysarthria. Cranial nerves II-XII are grossly intact. Intact memory. Motor system examination, 5/5 bilateral symmetrical except for the middle ring and little finger on the left upper extremity with 5-/5 finger flexion and abduction, otherwise 5/5 bilateral and symmetrical, normal reflexes 2+ bilateral and symmetrical. Plantars are bilaterally downgoing. No abnormal movement. Rzvcec-iz-brfc, [id number] intact. Intact stance, no ataxia, Romberg sign negative. Normal tandem gait. Psychological: Normal mood and behavior. Objective Radiology Results Last 72 hours Impressions Head/Brain Mag Res Venography 11/18/16 Signed Impressions: Service Date/Time: Friday, November 18, 2016 14:23 - CONCLUSION: No venous thrombosis. Rosales Henao MD Brain MRI 11/18/16 Signed Impressions: Service Date/Time: Friday, November 18, 2016 14:23 - CONCLUSION: 1. 2 small acute infarctions in the high right parietal lobe. Rosales Henao MD Neck Magnetic Resonance Angiography 11/17/16126 Signed Impressions: Service Date/Time: Thursday, November 17, 2016 02:44 - CONCLUSION: Normal examination. Jared Arias MD Head Magnetic Resonance Angiography 11/17/16126 Signed Impressions: Service Date/Time: Thursday, November 17, 2016 02:44 - CONCLUSION: Normal examination. Jared Arias MD Brain MRI 11/17/16122 Signed Impressions: Service Date/Time: Thursday, November 17, 2016 02:44 - CONCLUSION: Small area of acute infarction in the right parietal lobe. Jared Arias MD Cervical Spine MRI 11/17/16 Signed Impressions: Service Date/Time: Thursday, November 17, 2016 02:44 - CONCLUSION: Neural foramina compromise bilateral C4-C5 bilateral C5-6 and lateral recess compromise left C4-5 with effacement of the anterior CSF space C4-C5. Jared Arias MD Brachial Plexus MRI 11/17/16 0000 Signed Impressions: Service Date/Time: Thursday, November 17, 2016 02:44 - CONCLUSION: Unremarkable study. Jared Arias MD Head CT 11/16/162355 Signed Impressions: Service Date/Time: Thursday, November 17, 2016 00:45 - CONCLUSION: Unremarkable study. Jared Arias MD Chest X-Ray 11/16/162355 Signed Impressions: Service Date/Time: Thursday, November 17, 2016 00:11 - CONCLUSION: No acute cardiopulmonary disease. Jared Arias MD Cervical Spine CT 11/16/162355 Signed Impressions: Service Date/Time: Thursday, November 17, 2016 00:45 - CONCLUSION: Moderate bilateral lateral recess compromise C4-C5 without any significant thecal sac stenosis. Jared Arias MD Micro and Labs Laboratory Tests Test 11/18/16 06:40 Triglycerides Level 168 Cholesterol Level 165 LDL Cholesterol 63 HDL Cholesterol 68.5 Cholesterol/HDL Ratio 2.40 Herminia Sylvester MD Nov 18, 2016 16:47
[2016-11-19] VITALS (8 sets, daily range): BP systolic 94–129; BP diastolic 67–76; PULSE 65–93; RESP 16–19; TEMP 96.6–98; O2SAT 94–98
[2016-11-19] MEDS: SODIUM CHLORIDE 0.9% FLUSH 10 ML FLUSH IV FLUSH SCH ×2 (08:06→21:03)
[2016-11-19] MEDS: CLOPIDOGREL 75 MG TAB PO SCH (08:06)
--- NOTE | 2016-11-19 11:59 | HHI.PR ---
Subjective Remarks No new complaints. Pt reports that the numbness in the left forearm and hard is almost completely resolved. 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, back to baseline Objective Vitals Vital Signs Date Time Temp Pulse Resp B/P Pulse Ox O2 Delivery O2 Flow Rate FiO2 11/19/16 11:47 98.0 76 16 129/75 98 11/19/16 09:39 77 11/19/16 08:06 97.0 72 16 94/67 98 11/19/16 04:00 96.6 78 18 119/69 98 11/19/16 00:00 97.8 82 18 105/70 97 11/18/16 20:00 96.0 81 20 114/74 97 11/18/16 16:00 96.0 69 19 127/64 97 11/18/16 15:09 76 11/18/16 12:00 96.6 71 19 103/74 94 11/18/16 11/18/16 11/19/16 15:00 23:00 07:00 Intake Total 1500 ml 480 ml Balance 1500 ml 480 ml Intake Oral 1500 ml 480 ml # Voids 7 3 # Bowel Movements 0 1 Result Diagram: 11/16/16 2330 11/16/16 2330 Other Results Laboratory Tests Test 11/18/16 06:40 Triglycerides Level 168 MG/DL Cholesterol Level 165 MG/DL LDL Cholesterol 63 MG/DL HDL Cholesterol 68.5 MG/DL Cholesterol/HDL Ratio 2.40 RATIO Imaging Last Impressions Head/Brain Mag Res Venography 11/18/16 0000 Signed Impressions: Service Date/Time: Friday, November 18, 2016 14:23 - CONCLUSION: No venous thrombosis. Rosales Henao MD Brain MRI 11/18/16 0000 Signed Impressions: Service Date/Time: Friday, November 18, 2016 14:23 - CONCLUSION: 1. 2 small acute infarctions in the high right parietal lobe. Rosales Henao MD Neck Magnetic Resonance Angiography 11/17/16126 Signed Impressions: Service Date/Time: Thursday, November 17, 2016 02:44 - CONCLUSION: Normal examination. Jared Arias MD Head Magnetic Resonance Angiography 11/17/16126 Signed Impressions: Service Date/Time: Thursday, November 17, 2016 02:44 - CONCLUSION: Normal examination. Jared Arias MD Cervical Spine MRI 11/17/16 0000 Signed Impressions: Service Date/Time: Thursday, November 17, 2016 02:44 - CONCLUSION: Neural foramina compromise bilateral C4-C5 bilateral C5-6 and lateral recess compromise left C4-5 with effacement of the anterior CSF space C4-C5. Jared Arias MD Brachial Plexus MRI 11/17/16 0000 Signed Impressions: Service Date/Time: Thursday, November 17, 2016 02:44 - CONCLUSION: Unremarkable study. Jared Arias MD Head CT 11/16/162355 Signed Impressions: Service Date/Time: Thursday, November 17, 2016 00:45 - CONCLUSION: Unremarkable study. Jared Arias MD Chest X-Ray 11/16/162355 Signed Impressions: Service Date/Time: Thursday, November 17, 2016 00:11 - CONCLUSION: No acute cardiopulmonary disease. Jared Arias MD Cervical Spine CT 11/16/162355 Signed Impressions: Service Date/Time: Thursday, November 17, 2016 00:45 - CONCLUSION: Moderate bilateral lateral recess compromise C4-C5 without any significant thecal sac stenosis. 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 - Neurology consulted - Head CT (11/17) --> Negative - MRI Brain (11/17) --> shows concern for acute ischemic infarct in right parietal region - MRI C spine (11/17) --> showed some C4-5-6 neuroforaminal dz but nothing that seems to be in the distribution of her symptoms. - MRA Neck (11/17) --> negative. - Repeat MRI Brain (11/18) --> 2 small acute infarctions in the high right parietal lobe. - MR Venogram (11/18) --> No venous thrombosis - 2D echo (11/17/16) --> Estimated EF 60-65%, no regional wall motion abnormalities, PA peak pressure 42mmHg - Consider ROBERTO to r/o any PFO/ASD - Holter Monitor --> pending. - If Holter is negative pt may need a prolonged child monitor as an outpt. - Telemetry without evidence for A.fib/flutter - Cont Plavix for now. - Hypercoag panel is pending - FLP results noted. - Tobacco cessation - DVT prophylaxis. (2) Tobacco use Status: Chronic Plan: - See above Assessment and Plan Patient examined. Assessment and plan formulated with Santa Whitman PA-C. I agree with the above. Pt now clinically asymptomatic. Santa Whitman Nov 19, 2016 11:59 [place] Back DO Nov 20, 2016 13:02
--- NOTE | 2016-11-19 15:33 | HHI.PR ---
Review/Management Diagnosis Acute ischemic stroke, right parietal region. hyperlipidemia Plan - Neuro checks q. 4 hourly. - Plavix 75 milligrams, allergy to ASA. - Holter monitoring. - pending results of hypercoagulable panel. - Tobacco cessation. - DVT prophylaxis. - GI prophylaxis. - ROBERTO for next am Diagnosis/Plan: Subjective Subjective Comments Stable, no new complaint Much improvement in muscle strength and use of left hand MRV is unremarkable pending hypercoagulable work up For ROBERTO next am Elevated lipid profile levels Active Medications Current Medications Medications (Trade) Dose Ordered Sig/Rea Route Start Time Stop Time Status Last Admin (Zofran Inj) 4 mg Q6H PRN IV 11/17/16 01:45 (Tylenol) 650 mg Q4H PRN PO 11/17/16 01:45 (NS Flush) 2 ml BID IV FLUSH 11/17/16 09:00 11/19/16 08:06 (NS Flush) 2 ml UNSCH PRN IVF 11/17/16 01:45 (Plavix) 75 mg DAILY PO 11/18/16 09:00 11/19/16 08:06 Allergies Allergies Coded Allergies Aspirin (Verified Adverse Reaction, Severe, Bleeding, 11/16/16) Exam I&O / VS 11/18/16 11/18/16 11/19/16 15:00 23:00 07:00 Intake Total 1500 ml 480 ml Balance 1500 ml 480 ml Intake Oral 1500 ml 480 ml # Voids 7 3 # Bowel Movements 0 1 Vital Signs Date Time Temp Pulse Resp B/P Pulse Ox O2 Delivery O2 Flow Rate FiO2 11/19/16 11:47 98.0 76 16 129/75 98 11/19/16 09:39 77 11/19/16 08:06 97.0 72 16 94/67 98 11/19/16 04:00 96.6 78 18 119/69 98 11/19/16 00:00 97.8 82 18 105/70 97 11/18/16 20:00 96.0 81 20 114/74 97 11/18/16 16:00 96.0 69 19 127/64 97 Exam Comments General: Awake, alert, pleasant, good historian. HEENT: Atraumatic, normocephalic. Neck: Supple with no carotid bruit. Respiratory: Clear to auscultation. No wheezes. Cardiovascular: Regular rate and rhythm. No murmurs. Abdomen: Soft, nontender. Extremities: No leg edema. No swelling. No clubbing. Neurologic: Awake, alert and oriented to time, person and place. No dysphagia. No dysarthria. Cranial nerves II-XII are grossly intact. Intact memory. Motor system examination, 5/5 bilateral symmetrical except for the middle ring and little finger on the left upper extremity with 5-/5 finger flexion and abduction, otherwise 5/5 bilateral and symmetrical, normal reflexes 2+ bilateral and symmetrical. Plantars are bilaterally downgoing. No abnormal movement. Qbkhck-ow-qaph, gugn-bp-igxq intact. Intact stance, no ataxia, Romberg sign negative. Normal tandem gait. Psychological: Normal mood and behavior. Herminia Sylvester MD Nov 19, 2016 15:33
--- NOTE | 2016-11-19 15:57 | MB ---
cc: NEVAEH LENNON DATE OF CONSULTATION 11/19/16 INDICATIONS Stroke. HISTORY OF PRESENT ILLNESS This is a 41-year-old female. 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 She came in yesterday with left forearm, left hand numbness. She states that she was in her usual state of health until yesterday evening when she started about some paresthesia, numbness in her hand extending up to the level of the elbow. She had no other involvement in the left side of her body including her lower extremity. She had no difficulty with any speech or movement. She also did not have any headache symptoms. She came into to the emergency department. Initial CT scan was unremarkable. Electrocardiogram was unremarkable. She ended up having an MRI which showed a right parietal small stroke. We are consulted for further recommendations consideration of transesophageal echocardiogram. The remainder of her workup was relatively unremarkable. PAST MEDICAL HISTORY No significant past medical history. She has been otherwise healthy. She has a prior . REPORT MEDICATIONS None. ALLERGIES None. SOCIAL HISTORY Reports occasional alcohol use. Smokes about a pack a day. Denies any drug use. REVIEW OF SYSTEMS 12-point review of systems was performed, negative unless otherwise noted in the history of present illness. PHYSICAL EXAMINATION VITAL SIGNS: Temperature 98, pulse 76, blood pressure 129/75 mmHg. GENERAL: Alert and oriented x3 in no acute distress. HEENT: Exam shows pupils are reactive to light and accommodation. Extraocular movements are intact. No elevation in jugular venous distension. No thyromegaly or lymphadenopathy. No carotid bruits. LUNGS: Clear to auscultation bilaterally. CARDIOVASCULAR: Regular rate and rhythm without murmurs, rubs or gallops. ABDOMEN: Abdominal exam is nontender, nondistended. Good bowel sounds. No hepatosplenomegaly. EXTREMITIES: No clubbing, cyanosis or edema. Good peripheral pulses. NEURO: Cranial nerves intact. Motor, sensory grossly intact. LABORATORY DATA WBC 8.3, hemoglobin is 13.2, platelet counts 242, sodium 139, potassium 4.0, BUN is 13. Creatinine 0.89, TSH 1.80. CARDIOLOGY STUDIES Electrocardiogram sinus rhythm. Holter pending. Echo normal ejection fraction. No significant valvular disease. ASSESSMENT 1. Stroke. PLAN Unclear etiology. Given her age, cardioembolic source would be a potential possibility. We will make her n.p.o. after midnight. Plan for transesophageal echocardiogram to rule out intracardiac thrombus or patent foramen ovale. Will follow up on her Holter monitor, results have not been put in the chart. If the ROBERTO is unremarkable she is going to continue Plavix and she will probably have an outpatient 21-day event monitor. If there is evidence for PFO with intracardiac shunting then we will have to talk about whether anticoagulation versus device closure would be most appropriate. Neurology following. MD OBINNA Romero/SUSHILA /3:15 PM /3:41 PM
--- NOTE | 2016-11-19 16:33 | HM ---
Date Performed: 11/18/2016 Time Performed: 12:12:00 HOOKUP DATE: 11/18/16 12:12:00 PM Sun ANALYSIS START TIME: 11/18/2016 12:17:00 PM ANALYSIS END TIME: 11/19/2016 12:20:59 PM PATIENT AGE: 41 PATIENT HEIGHT PATIENT WEIGHT DRUG LIST PATIENT DIAGNOSIS TEST NARRATIVE: The patient's average heart rate was 73 BPM. Heart rates greater than 120 B PM were noted < 1% of the time. No episodes of bradycardia were noted. No pauses exceeding 2.0 s econds were noted. No ventricular ectopics were noted. 9 supraventricular ectopics, which rep resented < 1% of the total beat count, were noted. The highest supraventricular ectopic frequency oc curred from 12:00 PM to 01:00 PM Sun. During this time 4 SVE(s) occurred. No episodes of ST depr ession (defined as -1.0 mm or more) were noted in channel 1. No episodes of ST depression (defined a s -1.0 mm or more) were noted in channel 2. No episodes of ST depression (defined as -1.0 mm or more ) were noted in channel 3. NO DIARY RETURNED TEST INTERPRETATION: The patient is in Sinus rhythm throughout the recording, with an average heart rate of 73, maximum heart rate of 120, minimum heart rate of 53. There is only rare ectopy seen. There are no pauses. There is no diary returned. Conclus ions: Not a remarkable Holter Monitor Recording. Signed by : Claus Lazo
[2016-11-19] MEDS ORDERED: POVIDONE IODINE 5% (ANTISEPSIS KIT) 4 APPLICATIONS EACH NARE PRN (23:45)
[2016-11-19] MEDS ORDERED: LACTATED RINGER'S 1000 ML IV PRN (23:45)
[2016-11-19] MEDS ORDERED: CHLORHEXIDINE GLUCONATE 2 % 1 PACK (2 CLOTHS) TOPICAL PRN (23:45)
[2016-11-19] MEDS ORDERED: SODIUM CHLORID 0.9% 500 ML IV PRN (23:45)
[2016-11-19] MEDS ORDERED: METOPROLOL TARTRATE 25 MG TAB PO PRN (23:45)
[2016-11-19] MEDS ORDERED: INSULIN HUMAN REGULAR 1,000 UNITS/10 ML VIAL SQ PRN (23:45)
[2016-11-20] VITALS (9 sets, daily range): BP systolic 105–129; BP diastolic 61–79; PULSE 70–104; RESP 16–18; TEMP 96.3–98.6; O2SAT 97–99
--- NOTE | 2016-11-20 07:29 | PD.CARD.PN ---
Subjective Subjective Remarks denies any palpitations. Denies any stroke symptoms (Oleksandr Epperson) Objective Vital Signs / I&O Vital Signs Date Time Temp Pulse Resp B/P Pulse Ox O2 Delivery O2 Flow Rate FiO2 11/20/16 04:10 97.6 75 18 107/70 98 11/20/16 02:17 70 11/20/16 00:30 98.1 79 18 129/70 98 11/19/16 20:34 96.8 88 19 126/69 98 11/19/16 20:30 93 11/19/16 15:30 97.7 65 16 120/76 94 11/19/16 11:47 98.0 76 16 129/75 98 11/19/16 09:39 77 11/19/16 08:06 97.0 72 16 94/67 98 I/O 11/19/16 11/19/16 11/19/16 11/20/16 11/20/16 11/20/16 07:00 15:00 23:00 07:00 15:00 23:00 Intake Total 480 ml 1080 ml 360 ml 0 ml Balance 480 ml 1080 ml 360 ml 0 ml Intake Oral 480 ml 1080 ml 360 ml 0 ml # Voids 3 4 3 4 # Bowel Movements 1 2 1 1 Physical Exam GENERAL: Well-nourished, well-developed patient in no apparent distress. NECK: No JVD. No carotid bruit. CARDIOVASCULAR: Regular rate and rhythm. S1/S2 no murmur, rub, or gallop. RESPIRATORY: No accessory muscle use. Clear to auscultation. Breath sounds equal bilaterally. GASTROINTESTINAL: Abdomen soft, non-tender, nondistended. MUSCULOSKELETAL: Extremities without clubbing, cyanosis, or edema. (Oleksandr Epperson) Assessment and Plan Problem List: (1) CVA (cerebral vascular accident) Assessment and Plan CVA - Telemetry reveals no significant ectopy. Plan is for ROBERTO today and further recommendations will depend upon that result (Oleksandr Epperson) Assessment and Plan ROBERTO - large PFO with bidirectional shunting on doppler and agitated saline contrast administration. will need to discuss anticoagulation vs endovascular closure will need to discuss timing with neurology for clearance if she decides for endovascular closure. given her age, this would be reasonable vs lifelong anticoagulation (Allen Wolfe MD) Oleksandr Epperson Nov 20, 2016 07:28 Allen Wolfe MD Nov 20, 2016 11:34
[2016-11-20] MEDS: CLOPIDOGREL 75 MG TAB PO SCH (10:11)
[2016-11-20] MEDS: SODIUM CHLORIDE 0.9% FLUSH 10 ML FLUSH IV FLUSH SCH ×2 (10:11→20:02)
[2016-11-20] MEDS ORDERED: MISCELLANEOUS NURSING INFORMATION XX PRN (11:45)
[2016-11-20] MEDS ORDERED: PROPOFOL 200 MG/20 ML AMP IV ONE (12:16)
--- NOTE | 2016-11-20 13:07 | HHI.PR ---
Subjective Remarks No new complaints. Pt denies any limb weakness. Pt is able to ambulate without difficulty. Pt able to swallow without difficulty. No problems with speech or word recall. Objective Vitals Vital Signs Date Time Temp Pulse Resp B/P Pulse Ox O2 Delivery O2 Flow Rate FiO2 11/20/16 08:02 97.5 72 16 105/61 98 11/20/16 04:10 97.6 75 18 107/70 98 11/20/16 02:17 70 11/20/16 00:30 98.1 79 18 129/70 98 11/19/16 20:34 96.8 88 19 126/69 98 11/19/16 20:30 93 11/19/16 15:30 97.7 65 16 120/76 94 11/19/16 11/19/16 11/20/16 15:00 23:00 07:00 Intake Total 1080 ml 360 ml 0 ml Balance 1080 ml 360 ml 0 ml Intake Oral 1080 ml 360 ml 0 ml # Voids 4 3 4 # Bowel Movements 2 1 1 Result Diagram: 11/16/16232911/16/162329 Imaging Last Impressions Head/Brain Mag Res Venography 11/18/16 0000 Signed Impressions: Service Date/Time: Friday, November 18, 2016 14:23 - CONCLUSION: No venous thrombosis. Rosales Henao MD Brain MRI 11/18/16 0000 Signed Impressions: Service Date/Time: Friday, November 18, 2016 14:23 - CONCLUSION: 1. 2 small acute infarctions in the high right parietal lobe. Rosales Henao MD Neck Magnetic Resonance Angiography 11/17/16126 Signed Impressions: Service Date/Time: Thursday, November 17, 2016 02:44 - CONCLUSION: Normal examination. Jared Arias MD Head Magnetic Resonance Angiography 11/17/16126 Signed Impressions: Service Date/Time: Thursday, November 17, 2016 02:44 - CONCLUSION: Normal examination. Jared Arias MD Cervical Spine MRI 11/17/16 0000 Signed Impressions: Service Date/Time: Thursday, November 17, 2016 02:44 - CONCLUSION: Neural foramina compromise bilateral C4-C5 bilateral C5-6 and lateral recess compromise left C4-5 with effacement of the anterior CSF space C4-C5. Jared Arias MD Brachial Plexus MRI 11/17/16 0000 Signed Impressions: Service Date/Time: Thursday, November 17, 2016 02:44 - CONCLUSION: Unremarkable study. Jared Arias MD Head CT 11/16/162355 Signed Impressions: Service Date/Time: Thursday, November 17, 2016 00:45 - CONCLUSION: Unremarkable study. Jared Arias MD Chest X-Ray 11/16/162355 Signed Impressions: Service Date/Time: Thursday, November 17, 2016 00:11 - CONCLUSION: No acute cardiopulmonary disease. Jared Arias MD Cervical Spine CT 11/16/162355 Signed Impressions: Service Date/Time: Thursday, November 17, 2016 00:45 - CONCLUSION: Moderate bilateral lateral recess compromise C4-C5 without any significant thecal sac stenosis. 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 - Neurology consulted - Head CT (11/17) --> Negative - MRI Brain (11/17) --> shows concern for acute ischemic infarct in right parietal region - MRI C spine (11/17) --> showed some C4-5-6 neuroforaminal dz but nothing that seems to be in the distribution of her symptoms. - MRA Neck (11/17) --> negative. - Repeat MRI Brain (11/18) --> 2 small acute infarctions in the high right parietal lobe. - MR Venogram (11/18) --> No venous thrombosis - 2D echo (11/17/16) --> Estimated EF 60-65%, no regional wall motion abnormalities, PA peak pressure 42mmHg - Consider ROBERTO to r/o any PFO/ASD - Holter Monitor (11/19/16) --> NSR - Telemetry without evidence for A.fib/flutter - Cont Plavix for now. - Hypercoag panel is pending - FLP results noted. - Tobacco cessation - DVT prophylaxis. - Pt underwent ROBERTO (11/20/16) - Large PFO - normal EF - Case d/w Dr. Wolfe and Dr. Sylvester - Pt needs PFO repair - Case d/w Dr. Sylvester. He does NOT feel that pt would be a risk of hemorrhagic conversion with PFO repair using some heparin. Dr. Sylvester agrees that risk/benefit assessment favors prompt repair of PFO. (2) PFO (patent foramen ovale) Status: Acute Plan: - see above (3) Tobacco use Status: Chronic Plan: - See above [place] Back DO Nov 20, 2016 13:07
--- NOTE | 2016-11-20 18:02 | HHI.PR ---
Review/Management Diagnosis Acute ischemic stroke Cryptogenic stroke: no evidence of carotid disease, no occult A fib, evidence of small vessel disease. hyperlipidemia PFO /ROBERTO Plan - Neuro checks q. 4 hourly. - Plavix 75 milligrams, allergy to ASA. - Holter monitoring. - pending results of hypercoagulable panel. - Tobacco cessation. - DVT prophylaxis. - GI prophylaxis. - I explained to the patient at length the therapeutic options for PFO, namely medical-antiplatelet/anticoagulation vs surgical closure and that there is not enough data and evidence in the clinical trials about the superiority of either , she understands well, and she wants to pursue the surgical option - Discussed with Dr. Back over the phone about a concern of hemorrhagic conversion given cardiology protocol of using heparin during the PFO closure procedure; the size of the infarcted area is small, and is subcortical, that makes this less likely as a complication. Diagnosis/Plan: Subjective Subjective Comments No acute events reported overnight Patient with no new complaints Stable neurologic exam ROBERTO revealed large PFO as per Dr. Wing phone call Active Medications Current Medications Medications (Trade) Dose Ordered Sig/Rea Route Start Time Stop Time Status Last Admin (Zofran Inj) 4 mg Q6H PRN IV 11/17/16 01:45 (Tylenol) 650 mg Q4H PRN PO 11/17/16 01:45 (NS Flush) 2 ml BID IV FLUSH 11/17/16 09:00 11/20/16 10:11 (NS Flush) 2 ml UNSCH PRN IVF 11/17/16 01:45 Clopidogrel Bisulfate 75 mg 75 mg DAILY PO 11/18/16 09:00 11/20/16 10:11 Lactated Ringer's 1,000 ml @ 30 mls/hr Q24H PRN IV 11/19/16 23:45 11/22/16 23:44 (NS 500 ml Inj) 500 ml @ 30 mls/hr [id number] PRN IV 11/19/16 23:45 11/22/16 23:44 Miscellaneous Information 1 UNSCH PRN XX 11/20/16 11:45 11/23/16 11:44 Allergies Allergies Coded Allergies Aspirin (Verified Adverse Reaction, Severe, Bleeding, 11/16/16) Exam I&O / VS 11/19/16 11/19/16 11/20/16 15:00 23:00 07:00 Intake Total 1080 ml 360 ml 0 ml Balance 1080 ml 360 ml 0 ml Intake Oral 1080 ml 360 ml 0 ml # Voids 4 3 4 # Bowel Movements 2 1 1 Vital Signs Date Time Temp Pulse Resp B/P Pulse Ox O2 Delivery O2 Flow Rate FiO2 11/20/16 16:00 96.3 74 18 119/66 97 11/20/16 12:02 97.4 76 16 112/70 99 11/20/16 08:02 97.5 72 16 105/61 98 11/20/16 04:10 97.6 75 18 107/70 98 11/20/16 02:17 70 11/20/16 00:30 98.1 79 18 129/70 98 11/19/16 20:34 96.8 88 19 126/69 98 11/19/16 20:30 93 Exam Comments General: Awake, alert, pleasant, no acute distress HEENT: Atraumatic, normocephalic. Neck: Supple with no carotid bruit. Respiratory: Clear to auscultation. No wheezes. Cardiovascular: Regular rate and rhythm. No murmurs. Abdomen: Soft, nontender. Extremities: No leg edema. No swelling. No clubbing. Neurologic: Awake, alert and oriented to time, person and place. No dysphagia. No dysarthria. Cranial nerves II-XII are grossly intact. Intact memory. Motor system examination, 5/5 bilateral symmetrical except for the middle ring and little finger on the left upper extremity with 5-/5 finger flexion and abduction, otherwise 5/5 bilateral and symmetrical, normal reflexes 2+ bilateral and symmetrical. Plantars are bilaterally downgoing. No abnormal movement. [id number], [id number] intact. Intact stance, no ataxia, Romberg sign negative. Normal tandem gait. Psychological: Normal mood and behavior. Objective Radiology Results Last 72 hours Impressions Head/Brain Mag Res Venography 11/18/16 0000 Signed Impressions: Service Date/Time: Friday, November 18, 2016 14:23 - CONCLUSION: No venous thrombosis. Rosales Henao MD Brain MRI 11/18/16 0000 Signed Impressions: Service Date/Time: Friday, November 18, 2016 14:23 - CONCLUSION: 1. 2 small acute infarctions in the high right parietal lobe. Rosales Henao MD Herminia Sylvester MD Nov 20, 2016 18:02
[2016-11-21] VITALS (12 sets, daily range): BP systolic 107–120; BP diastolic 69–83; PULSE 68–126; RESP 16–20; TEMP 96.8–98.9; O2SAT 92–99
--- NOTE | 2016-11-21 07:47 | PD.CARD.PN ---
Subjective Subjective Remarks denies CV complaints (Oleksandr Epperson) Objective Vital Signs / I&O Vital Signs Date Time Temp Pulse Resp B/P Pulse Ox O2 Delivery O2 Flow Rate FiO2 11/21/16 03:12 97.7 100 18 120/69 98 11/20/16 23:11 97.9 77 18 111/64 99 11/20/16 20:42 98.6 104 18 126/79 98 11/20/16 20:40 88 11/20/16 16:00 96.3 74 18 119/66 97 11/20/16 12:02 97.4 76 16 112/70 99 11/20/16 08:02 97.5 72 16 105/61 98 I/O 11/20/16 11/20/16 11/20/16 11/21/16 11/21/16 11/21/16 07:00 15:00 23:00 07:00 15:00 23:00 Intake Total 0 ml 480 ml 480 ml 0 ml Balance 0 ml 480 ml 480 ml 0 ml Intake Oral 0 ml 480 ml 480 ml 0 ml # Voids 4 6 4 3 # Bowel Movements 1 1 Physical Exam GENERAL: Well-nourished, well-developed patient in no apparent distress. NECK: No JVD. No carotid bruit. CARDIOVASCULAR: Regular rate and rhythm. S1/S2 no murmur, rub, or gallop. RESPIRATORY: No accessory muscle use. Clear to auscultation. Breath sounds equal bilaterally. GASTROINTESTINAL: Abdomen soft, non-tender, nondistended. MUSCULOSKELETAL: Extremities without clubbing, cyanosis, or edema. (Oleksandr Epperson) Assessment and Plan Problem List: (1) CVA (cerebral vascular accident) Assessment and Plan CVA/PFO - she wishes for surgical closure. Heart catheterization will be scheduled and closure device is ordered. (Oleksandr Epperson) Assessment and Plan s/p PFO closure asa and plavix CXR limited 2d echo in am DC planning for am bubble study echo in 6 months (Allen Wolfe MD) Oleksandr Epperson Nov 21, 2016 07:47 Allen Wolfe MD Nov 21, 2016 13:42
[2016-11-21] MEDS: CLOPIDOGREL 75 MG TAB PO SCH (10:18)
[2016-11-21] MEDS: SODIUM CHLORIDE 0.9% FLUSH 10 ML FLUSH IV FLUSH SCH (10:19)
[2016-11-21] MEDS: ASPIRIN EC 325 MG TABEC PO SCH (10:21)
[2016-11-21] MEDS ORDERED: HEPARIN-NS/PF INJ 500 ML ONE (12:47)
[2016-11-21] MEDS ORDERED: MIDAZOLAM HCL 2 MG/2 ML VIAL ONE ×2 (12:47→13:07)
[2016-11-21] MEDS ORDERED: HEPARIN SODIUM - IV 10,000 UNITS/10 ML VIAL ONE (13:12)
[2016-11-21] MEDS ORDERED: ceFAZolin INJ 1,000 MG VIAL ONE (13:43)
[2016-11-21] MEDS ORDERED: ATROPINE SULFATE 1 MG/ML VIAL IV PRN (13:45)
[2016-11-21] MEDS ORDERED: LIDOCAINE HCL 1% 50 ML VIAL INFIL PRN (13:45)
[2016-11-21] MEDS ORDERED: LORazepam 2 MG/ML VIAL IV PRN (13:45)
[2016-11-21] MEDS ORDERED: SODIUM CHLOR 0.9% 250 ML INJ 250 ML IV PRN (13:45)
[2016-11-21] MEDS ORDERED: MISC INFORMATION XX ONE (13:45)
[2016-11-21] MEDS ORDERED: MORPHINE SULFATE 4 MG/ML INJ IV PUSH PRN (13:45)
--- NOTE | 2016-11-21 13:59 | CATHPROC ---
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 *[id number] AMPLATZER MEDICAL [id number] 13:25 GUIDEWIRE, SUPERSTIFF 260CM Used Tactilize IRVING. *[id number] AMPLATZER MEDICAL 13:31 SEPTAL OCCLUDER, 25MM FR12 [id number] Used Tactilize IRVING. AMPLATZER MEDICAL SYSTEM, FR10 TORQUE DELIV 12:43 FR10 [id number] Used Tactilize IRVING. 80CM ARROW INTERNATIONAL CATHETER, FR.7 BALLOON [id number] 13:18 FR 7 Used INC. WEDGE PRESSURE *[id number] TRANSDUCER, TRRoundarchAVE [id number] 12:43 HCOUDHURY RAPHAEL * Used W/STOCKCOCK *[id number] BIOSENSE GARCIA [id number] 13:12 CATHETER, ACUNAV FR10 ICE FR 10 Used INC. *[id number] COVER, TRANSDUCER CABLE 12:43 CONE INSTRUMENTS 612-113 Used ACUNAV [id number] *[id number] 12:43 CORDIS/PACER SHEATH, FR10 KEVIN 11CM FR 10 [id number] Used 12:43 CORDIS/PACER SHEATH, FR9 KEVIN 11CM FR 9 [id number] Used [id number] 12:43 MEDLINE INDUSTRIES PACK, CCL CUSTOM * Used *[id number] 12:43 MEDLINE PACER PEN, SKIN DUAL W/ RULER * Used *[id number] 12:43 Libretto MEDICAL WIRE, EXCHANGE 260CM 3MMJ 260CM Used *[id number] 12:43 NAMIC MANIFOLD, 4 PORT * Used *[id number] 13:27 NYCOMED OMNIPAQUE, 350 MG, 150ML 150ML [id number] Used [id number] 12:43 ROBLES MEDICAL BLANKET,WARM AIR CCL * Used *[id number] 12:43 TERUMO MEDICAL SHEATH, FR7 TERUMO (10CM) FR 7 [id number] Used History: Other Current Smoker Method Packs a Day Years Used Pack Years Yes Cigarettes 1 20 20 Labs Hgb (g/dl) Hct (%) WBC (l/cumm) Platelets (thousands) 12.00-18.00 37.00-55.00 4.80-10.80 140.00-450.00 13.3 39.4 8.3 242 Glucose (mg/dl) BUN (mg/dl) Creatinine (mg/dl) BUN:Creatinine (1:x) 60.00-110.00 8.00-20.00 0.10-9.00 10.00-20.00 96 13 0.8 16.3 Na (meq/l) K (meq/l) 138.00-146.00 3.80-5.10 139 4 Medication Medication Total Dose (Bolus/Oral) Medication Total Dosage/Unit 1% XYLOCAINE 20 mL FENTANYL 100 mcg HEPARIN 09745 units VERSED 4 mg Medications (Bolus/Oral) Medication Time Given Dosage/Unit Administered By Reason VERSED 11/21/2016 1:04:12 PM 2 mg Ashely Raphael Patient arrived on 2 mg VERSED given by Ashely Raphael RN in Right Forearm via Peripheral IV. Ord ered by Allen Wolfe. FENTANYL 11/21/2016 1:05:32 PM 50 mcg Ashely Raphael Patient arrived on 50 mcg FENTANYL given by Ashely Raphael RN in Right Forearm via Peripheral IV. Ordered by Allen Wolfe. VERSED 11/21/2016 1:08:23 PM 2 mg Ashely Raphael Patient arrived on 2 mg VERSED given by Ashely Raphael RN in Right Forearm via Peripheral IV. Ord ered by Allen Wolfe. 1% XYLOCAINE 11/21/2016 1:08:34 PM 20 mL Ashely Raphael Patient arrived on 20 mL 1% XYLOCAINE given by Ashely Raphael RN in Right Forearm via Subcutaneou s. Ordered by Allen Wolfe. FENTANYL 11/21/2016 1:09:28 PM 50 mcg Ashely Raphael Patient arrived on 50 mcg FENTANYL given by Ashely Raphael RN in Right Forearm via Peripheral IV. Ordered by Allen Wolfe. HEPARIN 11/21/2016 1:13:51 PM 79659 units [place] [address] [place] HEPARIN given by Ashely Raphael RN in Right Forearm via Peripheral IV. Ordered by Allen Wolfe. Medication (Drip) Medication Time Given Dosage/Unit Concentration/Unit Diluent (ml) Solution IV Solutions 11/21/2016 12:39:54 PM 0 mL (IV) 1000 NaCl .9 Patient arrived on IV Solutions given by Ashely Raphael RN in Right Forearm via Peripheral IV. Pu mp/Drip Flow = 20 ml/hr using NaCl .9. Ordered by Allen Wolfe. Initial Case Assessment Cardiovascular HR NIBP 67 116/74 Edema Present Skin color Skin None Normal Warm Dry Neurological State Oriented to time-place- Alert Moves all extremities person Respiration - General Respiration Rate SpO2 (%) (B/min) 13 100 Initial Case Assessment Cardiovascular HR NIBP 68 118/74 Edema Present Skin color Skin None Normal Warm Dry Neurological State Oriented to time-place- Alert Moves all extremities person Respiration - General Respiration Rate SpO2 (%) (B/min) 15 98 Chronological Log Time Study Chronological Log 12:30:29 Patient arrived via Bed. 12:39:40 Patient Name, D.O.B, / Armband Verified By R.N. 12:39:41 Consent signed by the physician and the patient and verified by the [employer]aire[employer] staff. 12:39:42 Pre-op and post- op instructions given; patient acknowledges understanding of instructions. 12:39:44 Patient has been NPO for More than 6Hrs. 12:39:45 Skin Breakdown- Vitals capture started with the following parameters, Patient=Adult, Interval=15 min, Initial P upjszhl=331 mmHg, 12:39:48 Deflation Rate=5 mmHg 12:39:52 A # 20 IV was noted in the Forearm (right). Grade = 0 Patient arrived on IV Solutions given by Ashely Raphael RN in Right Forearm via Peripheral IV. Pump/Drip Flow = 12:39:54 20 ml/hr using NaCl .9. Ordered by Allen Wolfe. 12:40:02 History and physical on the chart or being dictated. 12:40:18 Reference ECG taken 12:40:25 HR=67 bpm, MNPI=178/74 mmhg, TuY9=760.0 %, Resp=13 B/min, Pain=0, Michael=10, Oliva=2 Assessment: Initial Case, HR=67 BPM, OGWI=859/74 mmhg, Edema=None, Color=Normal, Skin = Warm, D ry 12:43:51 Neurological: State=Alert, Ox3, MARROQUIN Respiration: Resp=13 B/min, WvC2=074 % 12:45:22 HR=67 bpm, KLFA=275/66 mmhg, DhF7=522.0 %, Resp=11 B/min, Pain=0, Michael=10, Oliva=2 12:50:21 HR=66 bpm, MMCY=481/75 mmhg, SpO2=98.0 %, Resp=18 B/min, Pain=0, Michael=10, Oliva=2 12:54:42 Bilateral groins prepped with 2% chlorhexidine, and with a 3 min. waiting time. 12:55:24 HR=66 bpm, LUGP=863/70 mmhg, EyV0=313.0 %, Resp=16 B/min, Pain=0, Michael=10, Oliva=2 12:56:35 Pressure channel 1 zeroed. 13:00:21 HR=73 bpm, ERZD=999/70 mmhg, IjW0=683.0 %, Resp=19 B/min, Pain=0, Michael=10, Oliva=2 Patient arrived on 2 mg VERSED given by Ashely Raphael RN in Right Forearm via Peripheral I V. Ordered by 13:04:12 Allen Wolfe. 13:05:22 HR=70 bpm, JXRI=659/71 mmhg, SpO2=98 %, Resp=22 B/min, Pain=0, Michael=10, Oliva=2 Patient arrived on 50 mcg FENTANYL given by Ashely Raphael RN in Right Forearm via Peripher al IV. Ordered by 13:05:32 Allen Wolfe. Time Out. Correct patient, correct procedure,correct physician, power injector not loaded with contrast with surgical 13:06:23 team present. Time Out Concurred by , individual staff 13:06:59 Case Start Patient arrived on 2 mg VERSED given by Ashely Raphael RN in Right Forearm via Peripheral I V. Ordered by 13:08:23 Allen Wolfe. Patient arrived on 20 mL 1% XYLOCAINE given by Ashely Raphael RN in Right Forearm via Subcu taneous. 13:08:34 Ordered by Allen Wolfe. Patient arrived on 50 mcg FENTANYL given by Ashely Raphael RN in Right Forearm via Peripher al IV. Ordered by 13:09:28 lAlen Wolfe. 13:10:23 HR=72 bpm, VEVB=330/69 mmhg, SpO2=98.0 %, Resp=17 B/min, Pain=0, Michael=10, Oliva=2 13:11:34 CATHETER, ACUNAV FR10 ICE FR 10 Was Postioned. 13:13:11 Vascular access was obtained in the Fem Vein (right). 13:13:26 Vascular access was obtained in the Fem Vein (right). 13:13:29 A SHEATH, FR10 KEVIN 11CM FR 10 was advanced into the Fem Vein (right) using the Modified Seldinger technique. 13:13:35 A CATHETER, FR.7 BALLOON WEDGE PRESSURE FR 7 was inserted via Fem Vein (right) 13:13:40 A SHEATH, FR7 TERUMO (10CM) FR 7 was advanced into the Fem Vein (right) using the Modified Seldinger [place] [address] [place] HEPARIN given by Ashely Raphael RN in Right Forearm via Carolyn pheral IV. Ordered 13:13:51 by Allen Wolfe. Recorded Pressure: RA, HR=81, Condition=Condition 1 13:14:47 (Right Atrium) RA Recorded Pressure: RV, HR=90, Condition=Condition 1 13:15:02 (Right Ventricle) RV 13:15:22 HR=86 bpm, NRJE=663/65 mmhg, SpO2=89.0 %, Resp=12 B/min, Pain=0, Michael=10, Oliva=2 Recorded Pressure: MPA, HR=79, Condition=Condition 1 13:15:31 (Main Pulmonary Artery) MPA 05/04/14 13:15:46 Saturation: Site=Ao (Aorta) , O2=90 %, Hgb=13.3 gm/dl, Condition=Condition 1. Used in [facility]. Recorded Pressure: PCW, HR=85, Condition=Condition 1 13:15:47 (Pulmonary Capillary Wedge) PCW 10/8/6 13:18:06 Activated Clotting Time Drawn 13:18:38 Saturation: Site=RA (Right Atrium) , O2=75.2 %, Hgb=13.3 gm/dl, Condition=Condition 1. Used in calculation. 13:19:16 Saturation: Site=RV (Right Ventricle) , O2=77.7 %, Hgb=13.3 gm/dl, Condition=Condition 1. U sed in calculation. 13:20:14 Saturation: Site=PA (Pulmonary Artery) , O2=78.3 %, Hgb=13.3 gm/dl, Condition=Condition 1. Used in calculation. 13:20:21 HR=91 bpm, YBPO=117/69 mmhg, SpO2=90.0 %, Resp=17 B/min, Pain=0, Michael=10, Oliva=2 13:21:06 CATHETER, ACUNAV FR10 ICE FR 10 Was Postioned. 13:22:48 Strum Max Catheter Removed 13:24:06 ACT (Normal Range 90-180) = 265 13:25:27 HR=74 bpm, YCOW=901/64 mmhg, SpO2=95.0 %, Resp=15 B/min, Pain=0, Michael=10, Oliva=2 A MPA-2 INFINITI CATHETER FR 5 was advanced over a wire. OMNIPAQUE, 350 MG, 150ML 150ML was us ed for 13:26:18 injections. 13:30:26 HR=79 bpm, BSBH=273/60 mmhg, SpO2=96.0 %, Resp=15 B/min, Pain=0, Michael=10, Oliva=2 A SYSTEM, FR10 TORQUE DELIV 80CM FR10 was exchanged in the Fem Vein (right). This was necessar y in order for 13:31:02 catheter support. 13:33:02 SEPTAL OCCLUDER, 25MM FR12 Deployed. 13:35:25 HR=78 bpm, NLDV=403/71 mmhg, SpO2=97.0 %, Resp=15 B/min, Pain=0, Michael=10, Oliva=2 A SHEATH, FR9 KEVIN 11CM FR 9 was exchanged in the Fem Vein (right). This was necessary in or jhonathan to achieve 13:36:50 vascular hemostasis. 13:38:55 Case End 13:40:28 HR=69 bpm, NFNF=465/74 mmhg, SpO2=98.0 %, Resp=18 B/min, Pain=0, Michael=10, Oliva=2 13:41:50 In the Fem Vein (right) the SHEATH, FR7 TERUMO (10CM) FR [address] by Allen Wolfe. 13:41:58 In the Fem Vein (right) the SHEATH, FR9 KEVIN 11CM FR [address] [facility] Wolfe. 13:42:07 Sterile dressing applied to site 13:42:13 No case complications noted. 13:42:18 Cine recording checked. 13:42:29 Bedside Report will be given. 13:42:31 Implantable Device card placed in patient's chart. 13:42:33 Contrast Scanned 13:43:36 ACT (Normal Range 90-180) = 240 13:45:25 HR=68 bpm, UGTH=001/74 mmhg, SpO2=98 %, Resp=15 B/min, Pain=0, Michael=10, Oliva=2 Assessment: Initial Case, HR=68 BPM, BRCX=627/74 mmhg, Edema=None, Color=Normal, Skin = Warm, Dry 13:57:06 Neurological: State=Alert, Ox3, MARROQUIN Respiration: Resp=15 B/min, SpO2=98 % 14:00:25 [facility] to [facility] End Study - Contrast Media Used In Study Contrast Total Opened (mL) Total Used (mL) Total Wasted (mL) Omnipaque 0 0 0 End Study - Maximum Contrast Load Max Contrast Load (mL) 502.6 End Study - Radiation Exposure Fluoro Time (minutes) 5.0 End Study - Patient Disposition Complications Transferred To Telemetry Bed
[2016-11-21] MEDS ORDERED: BACITRACIN OINT 0.9 GM PKT TOP ONE (14:30)
--- NOTE | 2016-11-21 14:34 | MA ---
cc: NEVAEH LENNON MD DATE: 11/21/2016 INDICATION FOR PROCEDURE Patent foramen ovale endovascular closure. PROCEDURE PERFORMED 1. Fluoroscopy with interpretation. 2. Right heart catheterization. 3. Intracardiac echocardiography. 4. Endovascular deployment of Amplatzer cribriform PFO closure device. METHOD The risks, benefits and alternatives were discussed with the patient. The patient understood and consented to the procedure. The patient was brought into the catheterization lab and placed on the catheterization table. The right groin was prepped and draped in a sterile fashion. The right groin was anesthetized with 2% lidocaine. The right femoral vein was accessed. A 10-Turkish, 11 cm sheath was placed without difficulty in the femoral vein. In addition, an 8-Turkish, 11 cm sheath was placed in the right femoral vein. RIGHT HEART CATHETERIZATION A 7-Turkish Marion-Max pulmonary artery catheter is advanced through a right femoral venous sheath to the level of the right atrium under fluoroscopic guidance. Hemodynamics were performed in all chambers while advancing to the pulmonary capillary wedge position. HEMODYNAMICS Right atrial pressure measured 7 mmHg. Right ventricular pressure measured 27/4 mmHg. Pulmonary arterial pressure measured 20/10 mmHg, Pulmonary capillary wedge pressure measured 10 mmHg. Cardiac index 5.9 liters per minute. Cardiac output 11.3 liters per minute. INTRACARDIAC ECHOCARDIOGRAPHY A 10-Turkish AcuNav intracardiac echo probe was advanced to the right femoral venous sheath to the level of the right atrium under fluoroscopic guidance. The intraatrial septum was identified. Agitated saline contrast was administered which showed [id number] shunting through a patent foramen ovale that was aneurysmal. PATENT FORAMEN OVALE CLOSURE A 5-Turkish multipurpose catheter was advanced through the 8-Turkish venous sheath and directed towards the intraatrial septum. A stander 0.035 inch J-wire was then carefully navigated across the intra-atrial septum through the PFO into the left upper pulmonary vein. Heparin was administered throughout the entire procedure to maintain appropriate anticoagulation. The multipurpose catheter was advanced into the left upper pulmonary vein, the wire removed. A 0.035 inch, 260 cm Amplatz Super Stiff wire was navigated into the left upper pulmonary vein, the multipurpose purpose catheter removed. The standard 8-Turkish sheath was removed and a 9-Turkish Amplatzer delivery sheath was then advanced over the wire across the intra-atrial septum and dilator and wire removed. A Tuohy David was then hooked up to the end of the sheath. A 25 mm cribriform Amplatzer device was then pulled back into the delivery sheath and navigated to the distal edge of the sheath across the left atrium. The left atrial disk was then deployed. The sheath was pulled back. The right atrial disk was deployed. [place] wiggle confirmed good placement. The delivery cable was then disconnected from the device. The device was stable in position. The sheath was then exchanged for a 9-Turkish short sheath. CONCLUSIONS 1. Successful patent foramen ovale closure with an Amplatzer cribriform septal occluder device. 2. Normal right-sided filling pressures. 3. Successful utilization of intracardiac echocardiography guidance. PLAN The patient will be continued on aspirin and Plavix. Will obtain a chest x-ray, give a total of three doses of Ancef. Lastly, we will obtain a limited 2-D echocardiogram in the morning to ensure good stable position. MD OBINNA Romero/DENISE /1:54 PM /2:09 PM
--- NOTE | 2016-11-21 17:07 | HHI.PR ---
Subjective Remarks No new complaints. Objective Vitals Vital Signs Date Time Temp Pulse Resp B/P Pulse Ox O2 Delivery O2 Flow Rate FiO2 11/21/16 12:00 98.9 126 19 118/73 95 11/21/16 08:00 96.8 68 20 114/83 99 11/21/16 03:12 97.7 100 18 120/69 98 11/20/16 23:11 97.9 77 18 111/64 99 11/20/16 20:42 98.6 104 18 126/79 98 11/20/16 20:40 88 11/20/16 11/20/16 11/21/16 15:00 23:00 07:00 Intake Total 480 ml 480 ml 0 ml Balance 480 ml 480 ml 0 ml Intake Oral 480 ml 480 ml 0 ml # Voids 6 4 3 # Bowel Movements 1 Result Diagram: 11/16/16 2330 11/16/16 2330 Imaging Last Impressions Head/Brain Mag Res Venography 11/18/16 0000 Signed Impressions: Service Date/Time: Friday, November 18, 2016 14:23 - CONCLUSION: No venous thrombosis. Rosales Henao MD Brain MRI 11/18/16 0000 Signed Impressions: Service Date/Time: Friday, November 18, 2016 14:23 - CONCLUSION: 1. 2 small acute infarctions in the high right parietal lobe. Rosales Henao MD Neck Magnetic Resonance Angiography 11/17/16126 Signed Impressions: Service Date/Time: Thursday, November 17, 2016 02:44 - CONCLUSION: Normal examination. Jared Airas MD Head Magnetic Resonance Angiography 11/17/16126 Signed Impressions: Service Date/Time: Thursday, November 17, 2016 02:44 - CONCLUSION: Normal examination. Jared Arias MD Cervical Spine MRI 11/17/16 0000 Signed Impressions: Service Date/Time: Thursday, November 17, 2016 02:44 - CONCLUSION: Neural foramina compromise bilateral C4-C5 bilateral C5-6 and lateral recess compromise left C4-5 with effacement of the anterior CSF space C4-C5. Jared Arias MD Brachial Plexus MRI 11/17/16 0000 Signed Impressions: Service Date/Time: Thursday, November 17, 2016 02:44 - CONCLUSION: Unremarkable study. Jared Arias MD Head CT 11/16/162355 Signed Impressions: Service Date/Time: Thursday, November 17, 2016 00:45 - CONCLUSION: Unremarkable study. Jared Arias MD Chest X-Ray 11/16/162355 Signed Impressions: Service Date/Time: Thursday, November 17, 2016 00:11 - CONCLUSION: No acute cardiopulmonary disease. Jared Arias MD Cervical Spine CT 11/16/162355 Signed Impressions: Service Date/Time: Thursday, November 17, 2016 00:45 - CONCLUSION: Moderate bilateral lateral recess compromise C4-C5 without any significant thecal sac stenosis. 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 - Neurology consulted - Head CT (11/17) --> Negative - MRI Brain (11/17) --> shows concern for acute ischemic infarct in right parietal region - MRI C spine (11/17) --> showed some C4-5-6 neuroforaminal dz but nothing that seems to be in the distribution of her symptoms. - MRA Neck (11/17) --> negative. - Repeat MRI Brain (11/18) --> 2 small acute infarctions in the high right parietal lobe. - MR Venogram (11/18) --> No venous thrombosis - 2D echo (11/17/16) --> Estimated EF 60-65%, no regional wall motion abnormalities, PA peak pressure 42mmHg - Consider ROBERTO to r/o any PFO/ASD - Holter Monitor (11/19/16) --> NSR - Telemetry without evidence for A.fib/flutter - Cont Plavix for now. - Hypercoag panel is pending - FLP results noted. - Tobacco cessation - DVT prophylaxis. - Pt underwent ROBERTO (11/20/16) - Large PFO - normal EF - Case d/w Dr. Wolfe and Dr. Sylvester - Pt needs PFO repair - Case d/w Dr. Sylvester ) He does NOT feel that pt would be a risk of hemorrhagic conversion with PFO repair using some heparin. Dr. Sylvester agrees that risk/benefit assessment favors prompt repair of PFO. - Pt underwent endovascular PFO closure with Dr. Wolfe (11/21/16) - if pt remains stable, will d/c to home in AM 6/8 (2) PFO (patent foramen ovale) Status: Acute Plan: - see above (3) Tobacco use Status: Chronic Plan: - See above [place] Back DO Nov 21, 2016 17:07
[2016-11-21] MEDS ORDERED: ATROPINE SULFATE 1 MG/10 ML SYRINGE ONE (22:31)
[2016-11-21] MEDS ORDERED: EPINEPHrine HCL (1:10,000) 1 MG/10 ML SYRINGE ONE (22:32)
--- NOTE | 2016-11-21 22:48 | RADRPT ---
EXAM DATE/TIME: 11/21/2016 22:37 [place] COMPARISON: CHEST SINGLE AP, November 17, 2016, 0:11. INDICATIONS : Post PFO closure device. MEDICAL HISTORY : None. SURGICAL HISTORY : Tonsillectomy. ENCOUNTER: Subsequent ACUITY: 1 day PAIN SCORE: 0/10 LOCATION: Bilateral chest FINDINGS: PA and lateral views of the chest demonstrate the lungs to be symmetrically aerated without evidence of mass, infiltrate or effusion. The cardiomediastinal contours are unremarkable. Osseous structure s are intact. CONCLUSION: No acute disease. Jose Joiner MD on November 21, 2016 at 22:43 Board Certified Radiologist. This report was verified electronically.
[2016-11-22] VITALS (15 sets, daily range): BP systolic 105–130; BP diastolic 62–77; PULSE 71–86; RESP 16; TEMP 98.1–98.9; O2SAT 92–99
[2016-11-22 03:51] LABS: THROMBIN TIME FOR LA ND sec (13-19)
--- NOTE | 2016-11-22 07:23 | PD.CARD.PN ---
Subjective Subjective Remarks denies any CV complaints Objective Vital Signs / I&O Vital Signs Date Time Temp Pulse Resp B/P Pulse Ox O2 Delivery O2 Flow Rate FiO2 11/22/16 06:31 98.6 80 16 130/77 93 11/22/16 06:00 72 11/22/16 05:00 78 11/22/16 04:00 82 11/22/16 03:00 73 11/22/16 02:00 74 11/22/16 01:09 98.9 72 16 105/62 92 11/22/16 01:00 74 11/22/16 00:00 74 11/21/16 23:00 79 11/21/16 22:00 82 11/21/16 21:00 82 11/21/16 20:36 98.9 76 16 115/74 92 11/21/16 20:00 80 11/21/16 19:00 84 11/21/16 18:39 70 18 116/78 11/21/16 17:33 98.0 70 18 107/70 95 11/21/16 17:32 70 11/21/16 12:00 98.9 126 19 118/73 95 11/21/16 08:00 96.8 68 20 114/83 99 I/O 11/21/16 11/21/16 11/21/16 11/22/16 11/22/16 11/22/16 07:00 15:00 23:00 07:00 15:00 23:00 Intake Total 0 ml 480 ml 720 ml Output Total 300 ml Balance 0 ml 480 ml 420 ml Intake Oral 0 ml 480 ml 720 ml Output Urine Total 300 ml Stool Total 0 ml # Voids 3 3 1 # Bowel Movements 0 Physical Exam GENERAL: Well-nourished, well-developed patient in no apparent distress. NECK: No JVD. No carotid bruit. CARDIOVASCULAR: Regular rate and rhythm. S1/S2 no murmur, rub, or gallop. RESPIRATORY: No accessory muscle use. Clear to auscultation. Breath sounds equal bilaterally. GASTROINTESTINAL: Abdomen soft, non-tender, nondistended. MUSCULOSKELETAL: Extremities without clubbing, cyanosis, or edema. Assessment and Plan Problem List: (1) CVA (cerebral vascular accident) Assessment and Plan CVA/PFO - s/p PFO closure, limited 2D echo this am and likely discharge today. She does require and work release with no restrictions from Oleksandr Epperson Nov 22, 2016 07:23
[2016-11-22] MEDS: ASPIRIN EC 325 MG TABEC PO SCH (08:09)
[2016-11-22] MEDS: SODIUM CHLORIDE 0.9% FLUSH 10 ML FLUSH IV FLUSH SCH (08:10)
[2016-11-22] MEDS: CLOPIDOGREL 75 MG TAB PO SCH (08:10)
[2016-11-22] MEDS ORDERED: ASPI325T33 PO (08:52)
[2016-11-22] MEDS ORDERED: PLAV75TA29 PO (08:52)
--- NOTE | 2016-11-22 08:59 | HHI.DCPOC ---
Discharge Care Plan Diagnosis: (1) CVA (cerebral vascular accident) (2) PFO (patent foramen ovale) (3) Focal neurological deficit (4) Tobacco use Goals to Promote Your Health - Patient is to followup with her PCP, Dr. Bray, in 1 week, call for an appt. - Patient to followup with Dr. Allen Wolfe in 2 weeks, call for an appt. - She will continue on Plavix 75mg once daily and Aspirin 325mg once daily for the next 6 months after which time she will stop the Plavix and then continue on just Aspirin per Cardiology recommendations. Directions to Meet Your Goals Take your medications as prescribed Follow your dietary instruction Follow activity as directed Keep your appointments as scheduled Take your immunizations and boosters as scheduled If your symptoms worsen call your PCP, if no PCP go to Urgent Care Center or Emergency Room Smoking is Dangerous to Your Health. Avoid second hand smoke Call the 24-hour hour crisis hotline for domestic abuse at [place] Nov 22, 2016 08:59
--- NOTE | 2016-11-22 09:12 | ECHRPT ---
Indication: CVA/TIA Indication: CVA/TIA CONCLUSIONS Normal left ventricular size and wall thickness. The left ventricular systolic function is normal wi th an estimated ejection fraction in the range of 60-65%. Left ventricular diastolic function parameters a re normal. Normal atrial septal thickness. A patent foramen ovale is present with a bidirectional shunt demonst rated by color flow Doppler interrogation. Right to left atrial level shunt is observed with agitated sali ne contrast administration. Atrial septal aneurysm is present (benign finding). There is trace tricuspid valve regurgitation. Pulmonary arterial systolic pressure could not be familia mated due to an insufficient tricuspid valve regurgitation doppler jet for measurement. BP: / HR: Rhythm: Technical Quality: Medications Complications There were no complications prior to, during or in recovery from the transesophag eal echocardiogram.. Proc. Components The patient was brought to the diagnostic imaging area in a fasting state after o btaining an informed consent. The patient was premedicated with IV Versed and IV Fentanyl. The cupola charger insulation ior pharynx was sprayed with Cetacaine spray and the patient was administered viscous Xylocaine 2 %. The ROBERTO probe was passed into the posterior pharynx , mid-esophagus, distal esophagus, and gastric fundus. ROBERTO was performed at multiple levels. The patient tolerated the procedure well and there were no complications. The patient was transferred to the floor in satisfactory condition.. The ROBERTO probe wa s passed into the posterior pharynx , mid-esophagus, distal esophagus, and gastric fundus.. FINDINGS Left Ventricle Normal left ventricular size and wall thickness. The left ventricular systolic function is normal wi th an estimated ejection fraction in the range of 60-65%. Left ventricular diastolic function parameters a re normal. Right Ventricle Normal right ventricular size and systolic function. Left Atrium The left atrial size is normal. Right Atrium The right atrial size is normal. Atrial Septum Normal atrial septal thickness. A patent foramen ovale is present with a bidirectional shunt demonst rated by color flow Doppler interrogation. Right to left atrial level shunt is observed with agitated sali ne contrast administration. Atrial septal aneurysm is present (benign finding). Aorta The aortic root and proximal ascending aorta are normal in size on limited imaging. Mitral Valve Structurally normal mitral valve. No mitral valve stenosis or regurgitation. Aortic Valve Trileaflet aortic valve. No aortic valve stenosis or regurgitation. Tricuspid Valve There is trace tricuspid valve regurgitation. Pulmonary arterial systolic pressure could not be familia mated due to an insufficient tricuspid valve regurgitation doppler jet for measurement. Vessels The pulmonary valve is not well visualized. Pulmonary Valve The inferior vena cava is normal in size. Pericardium No pericardial effusion. Allen Wolfe MC, FACC (Electronically Signed) Final Date:22 November 2016 09:11
--- NOTE | 2016-11-22 11:34 | ECHRPT ---
Indication: EF ASSESSMENT CONCLUSIONS No atrial level shunt is demonstrated by color flow Doppler interrogation. An interatrial septal occ luder closure device is present in a well seated position. BP: 126 / 80 HR: Rhythm: Sinus Technical Quality:Good FINDINGS Left Ventricle Normal left ventricular size. The left ventricular systolic function is normal with an estimated eje ction fraction in the range of 60-65%. Left Atrium The left atrial size is normal. Right Atrium The right atrial size is normal. Atrial Septum No atrial level shunt is demonstrated by color flow Doppler interrogation. An interatrial septal occ luder closure device is present in a well seated position. Mitral Valve Structurally normal mitral valve. Aortic Valve Trileaflet aortic valve. Tricuspid Valve Structurally normal tricuspid valve. Other Findings TC Wolfe MD, FACC (Electronically Signed) Final Date:22 November 2016 11:34
--- NOTE | 2016-11-22 12:34 | HHI.DS ---
Discharge Summary Admission Date Nov 19, 2016 at 10:50 Discharge Date: Nov 22, 2016 Admitting Diagnosis cva (1) CVA (cerebral vascular accident) Diagnosis: Principal (2) PFO (patent foramen ovale) Diagnosis: Secondary (3) Tobacco use Diagnosis: Secondary Consultants Dr. Allen Wolfe - Cardiology Dr. 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 She placed her purse onto the left shoulder and it fell off. Her grasp has been very weak in left hand and experiencing some spasm/contraction of hand spontaneously. These sx's are mostly in 3rd/4rth/5th fingers and hand..and parasthesia mostly in forearm. No trauma to the arm and no cervical pain or injury. No headache prior to onset of sx's and no n/v or vision change. IV solumedrol helped a little in ED but then it became worse again. No hx hypercoagulable d/o, no fh thrombosis, no estrogen products, no afib/flutter. Imaging Last Impressions Chest X-Ray 11/21/16 Signed Impressions: Service Date/Time: Monday, November 21, 2016 22:37 - CONCLUSION: No acute disease. Jose Joiner MD Head/Brain Mag Res Venography 11/18/16 Signed Impressions: Service Date/Time: Friday, November 18, 2016 14:23 - CONCLUSION: No venous thrombosis. Rosales Henao MD Brain MRI 11/18/16 Signed Impressions: Service Date/Time: Friday, November 18, 2016 14:23 - CONCLUSION: 1. 2 small acute infarctions in the high right parietal lobe. Rosales Henao MD Neck Magnetic Resonance Angiography 11/17/16126 Signed Impressions: Service Date/Time: Thursday, November 17, 2016 02:44 - CONCLUSION: Normal examination. Jared Arias MD Head Magnetic Resonance Angiography 11/17/16126 Signed Impressions: Service Date/Time: Thursday, November 17, 2016 02:44 - CONCLUSION: Normal examination. Jared Arias MD Cervical Spine MRI 11/17/16 Signed Impressions: Service Date/Time: Thursday, November 17, 2016 02:44 - CONCLUSION: Neural foramina compromise bilateral C4-C5 bilateral C5-6 and lateral recess compromise left C4-5 with effacement of the anterior CSF space C4-C5. Jared Arias MD Brachial Plexus MRI 11/17/16 0000 Signed Impressions: Service Date/Time: Thursday, November 17, 2016 02:44 - CONCLUSION: Unremarkable study. Jared Arias MD Head CT 11/16/16 2356 Signed Impressions: Service Date/Time: Thursday, November 17, 2016 00:45 - CONCLUSION: Unremarkable study. Jared Arias MD Cervical Spine CT 11/16/16 2356 Signed Impressions: Service Date/Time: Thursday, November 17, 2016 00:45 - CONCLUSION: Moderate bilateral lateral recess compromise C4-C5 without any significant thecal sac stenosis. 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 Neurology was consulted. Head CT (11/17) --> Negative. MRI Brain (11/17) --> shows concern for acute ischemic infarct in right parietal region. MRI C spine (11/17) --> showed some C4-5-6 neuroforaminal dz but nothing that seems to be in the distribution of her symptoms. MRA Neck (11/17) --> negative. Repeat MRI Brain (11/18) --> 2 small acute infarctions in the high right parietal lobe. MR Venogram (11/18) --> No venous thrombosis. 2D echo (11/17/16) --> Estimated EF 60-65%, no regional wall motion abnormalities, PA peak pressure 42mmHg. Holter Monitor (11/19/16) -- > NSR. Telemetry without evidence for A.fib/flutterPt then underwent evaluation with ROBERTO (11/20/16) which noted a large PFO. Case discussed between Dr. Back and Dr. Wolfe and Dr. Sylvester and it was recommended that the pt undergo PFO repair. Case discussed between Dr. Back and Dr. Sylvester (11/20/16) and he did NOT feel that pt would be a risk of hemorrhagic conversion with PFO repair using some heparin. Dr. Sylvester agreed that risk/benefit assessment favors prompt repair of PFO. Pt underwent endovascular PFO closure with Dr. Wolfe (11/21/16). Pt was recommended to continue on Plavix and ASA for 6 months per discussion with Dr. Wolfe and then likely will be able to continue on just ASA after that point. Pts repeat limited 2D echo on 11/22 and noted that the interatrial septal occluder closure device was present in a well seated position. Pt will need to followup with Dr. Wolfe in 1-2 weeks Pt will need to followup with Dr. Bray in 1 week, Pt has lifting restrictions of nothing over 50lbs x 2 weeks, per Cardiology. Pt Condition on Discharge: Stable Discharge Disposition: Discharge Home Discharge Instructions DIET: Follow Instructions for: Heart Healthy Diet Activities you can perform: Regular-No Restrictions, See Additionl Instruction Other Activity Instructions: No lifting over 50lbs x 2 weeks Follow up Referrals: Cardiology - [address] Allen Wolfe PCP Follow-up - [address] Toi Bray New Medications: Aspirin DR (Aspirin EC) 325 Mg Tabdr 325 MG PO DAILY CVA #30 TAB Clopidogrel (Plavix) 75 Mg Tab 75 MG PO DAILY CVA #30 TAB Additional Information Patient examined. Assessment and plan formulated with Santa Whitman PA-C. I agree with the above. Santa Whitman Nov 22, 2016 12:34 Milan Back DO Nov 28, 2016 00:37
== END 2016-11-22 13:48 | disposition home or self-care (01) | DRG 982 ==
LOC: NEPE 23:28 → NEDA 11-17 01:35 → N06B 11-17 02:03 → OBSVTOIN 11-19 10:50 → HCIS 11-21 13:01
PROVIDERS: ADMIT Hospitalist; ATTEND Hospitalist
PROC: B246ZZ4 Ultrasonography of Right and Left Heart, Transesophageal (ICD-10-PCS; 2016-11-21)
PROC: 4A023N6 Measurement of Cardiac Sampling and Pressure, Right Heart, Percutaneous Approach (ICD-10-PCS; 2016-11-21)
PROC: 02U53JZ Supplement Atrial Septum with Synthetic Substitute, Percutaneous Approach (ICD-10-PCS; principal; 2016-11-21 12:30)
DX: I63.411 Cerebral infarction due to embolism of right middle cerebral artery (principal); Q21.1 Atrial septal defect; G81.94 Hemiplegia, unspecified affecting left nondominant side; E78.5 Hyperlipidemia, unspecified; F17.210 Nicotine dependence, cigarettes, uncomplicated; Z88.6 Allergy status to analgesic agent
CPT/HCPCS: 70450; 70544; 70545; 70548; 70551; 70553; 71010; 71020; 72125; 72141; 73218; 80053; 80061; 81001; 81240; 81241; 82810; 82948; 84443; 84703; 85002; 85025; 85303; 85306; 85347; 85610; 85613; 85730; 86146; 86147; 93005; 93225; 93226; 93306; 93308; 93312; 93320; 93325; 93451; 93580; 93662; 96374; A9579; C1759; C1769; C1817; C1893; G0378; J0171; J0461; J0690; J1644; J2250; J2930; J3010; J7030